=== PATIENT | female | born 1955 ===

== ENCOUNTER 2018-05-06 23:26 | Observation (INO) | payer MEDICAID, OTHER ==
[2018-05-06 23:50] VITALS: BMI 27.8
--- NOTE | 2018-05-07 00:14 | ED PDOC ---
Arrival/HPI - General Time Seen by Provider: 05/07/18 00:03 Historian: Patient, Family - History of Present Illness Narrative History of Present Illness (Text): 05/07/18 00:15 Becka Keith is a 63 year old female, whose past medical history includes diabet es, hypertension, kidney failure currently on transplant list, and appendectomy, presents to the Emergency department accompanied by daughter complaining of left sided abdominal pain for the past 3 weeks. Patient reports left-sided abdominal pain radiates to the left flank and has been gradually worsening. Patient reports no improvement after taking Percocet and Oxycontin. Patient notes she has been urinating frequently and experiencing nausea, vomiting, diarrhea, and cold sweats since yesterday. Patient denies headache, dizziness, chest pain, shortness of breath, dyspnea on exertion, cough, neck pain, or any other complaints. PMD: Dr. Somers Avionics System Engineer: Dr. Steven Marie Time/Duration: > week Symptom Course: Unchanged Quality: Aching Activities at Onset: Light Context: Home Past Medical History - Provider Review Nursing Documentation Reviewed: Yes - Infectious Disease Hx of Infectious Diseases: None - Cardiac Hx Pacemaker: No - Neurological Hx Paralysis: No - Endocrine/Metabolic Hx Diabetes Mellitus Type 2: Yes - Hematological/Oncological Hx Blood Transfusions: No Hx Blood Transfusion Reaction: No - Musculoskeletal/Rheumatological Hx Musculoskeletal Disorders: Yes - Psychiatric Hx Emotional Abuse: No Hx Physical Abuse: No Hx Substance Use: No - Surgical History Hx Appendectomy: Yes - Anesthesia Hx Anesthesia Reactions: No Hx Malignant Hyperthermia: No - Suicidal Assessment Feels Threatened In Home Enviroment: No Family/Social History - Physician Review Nursing Documentation Reviewed: Yes Family/Social History: Unknown Family HX Smoking Status: Former Smoker Hx Alcohol Use: No Hx Substance Use: No Hx Substance Use Treatment: No Allergies/Home Meds Allergies/Adverse Reactions: Allergies latex Allergy (Intermediate, Verified 05/06/18 23:50) HIVES aspirin Adverse Reaction (Intermediate, Verified 05/06/18 23:50) ACID REFLUX/STOMACH PAIN Home Medications: Home Meds Medication Instructions Recorded Confirmed Insulin Glargine,Hum.rec.anlog 10 unit SC HS 01/12/12 05/07/18 [Lantus] Insulin Human NPH/Reg [HumuLIN 8 units SC ACBD 06/29/12 10/23/18 70/30 (NPH/Reg)] Oxycodone HCl [Oxycontin] 10 mg PO BID 05/24/16 05/07/18 oxyCODONE/Acetaminophen [Percocet 1 tab PO QID PRN 07/14/16 05/07/18 5/325 mg Tab] Acetaminophen/Butalbital/Caf 1 tab PO Q6H PRN 05/06/18 05/06/18 [Fioricet] Biotin 1,000 mcg PO DAILY 05/06/18 05/07/18 Bisoprolol Fumarate 10 mg PO BID 05/06/18 05/06/18 Cyclobenzaprine [Flexeril] 10 mg PO DAILY 05/06/18 05/07/18 Docusate [Colace] 100 mg PO DAILY 05/06/18 05/06/18 Ergocalciferol (Vitamin D2) 1 tab PO MON 05/06/18 05/06/18 [Vitamin D2] Furosemide [Lasix] 20 mg PO DAILY 05/06/18 05/06/18 Lamotrigine [Lamictal] 150 mg PO DAILY 05/06/18 05/06/18 Omeprazole Magnesium [Prilosec Otc] 40 mg PO DAILY 05/06/18 05/07/18 SITagliptin [Januvia] 100 mg PO DAILY 05/06/18 05/06/18 Sodium Bicarbonate Tab 650 mg PO DAILY 05/06/18 05/07/18 Topiramate [Topamax] 50 mg PO DAILY 05/06/18 05/06/18 hydrALAZINE [Apresoline] 25 mg PO TID 05/06/18 05/07/18 hydrALAZINE [Apresoline] 50 mg PO TID 05/06/18 05/06/18 Atorvastatin [Lipitor] 20 mg PO DAILY 05/07/18 05/07/18 Ferrous Sulfate [Feosol] 325 mg PO DAILY 05/07/18 05/07/18 Lisinopril [Zestril] 40 mg PO DAILY 05/07/18 05/07/18 Losartan [Cozaar] 100 mg PO DAILY 05/07/18 05/07/18 Ranitidine HCl [Acid [employer]] 150 mg PO DAILY 05/07/18 05/07/18 Spironolactone [Aldactone] 25 mg PO DAILY 05/07/18 05/07/18 Review of Systems - Physician Review All systems were reviewed & negative as marked: Yes - Review of Systems Constitutional: absent: Fevers Respiratory: absent: SOB, Cough Cardiovascular: absent: Chest Pain Gastrointestinal: Abdominal Pain, Diarrhea, Nausea, Vomiting Genitourinary Female: Frequency Neurological: absent: Headache, Dizziness Physical Exam Vital Signs Reviewed: Yes Vital Signs Temp Pulse Resp BP Pulse Ox 05/07/18 00:09 98.7 F 70 16 187/89 H 100 Temperature: Afebrile Blood Pressure: Hypertensive Pulse: Regular Respiratory Rate: Normal Appearance: Positive for: Well-Appearing, Non-Toxic, Comfortable Pain Distress: None Mental Status: Positive for: Alert and Oriented X 3 - Systems Exam Head: Present: Atraumatic, Normocephalic Pupils: Present: PERRL Extroacular Muscles: Present: EOMI Conjunctiva: Present: Normal Mouth: Present: Moist Mucous Membranes Neck: Present: Normal Range of Motion Respiratory/Chest: Present: Clear to Auscultation, Good Air Exchange. No: Respiratory Distress, Accessory Muscle Use Cardiovascular: Present: Regular Rate and Rhythm, Normal S1, S2. No: Murmurs Abdomen: Present: Tenderness (left mid/upper). No: Distention, Peritoneal Signs Back: Present: Normal Inspection Upper Extremity: Present: Normal Inspection. No: Cyanosis, Edema Lower Extremity: Present: Normal Inspection. No: Edema Neurological: Present: GCS=15, CN II-XII Intact, Speech Normal Skin: Present: Warm, Dry, Normal Color. No: Rashes Psychiatric: Present: Alert, Oriented x 3, Normal Insight, Normal Concentration Medical Decision Making ED Course and Treatment: 05/07/18 00:15 Impression: 63 year old female who present to the Emergency department with complaints of left sided flank pain. Plan: -- CT of Abdomen -- EKG -- Labs -- UA -- Reassess and disposition Prior Visits: Notes and results from previous visits were reviewed. Progress Notes: Reviewed EKG, NSR at 79 bpm. Normal axis. Normal intervals. No acute ST/T wave changes. 05/07/18 03:32 CT of Abdomen and Pelvis reviewed, shows: CT SCAN OF THE ABDOMEN AND PELVIS WITHOUT ORAL OR IV CONTRAST. CLINICAL INDICATION: Left flank pain. TECHNIQUE: Axial and reformatted sagittal and coronal images of the abdomen pelvis obtained without IV contrast administration. COMPARISON: None. FINDINGS: The visualized lung bases are unremarkable. Normal unenhanced liver. Normal gallbladder and extrahepatic biliary system. Normal unenhanced spleen. Normal pancreas. Normal bilateral adrenal glands. Normal size of the right kidney. There is no right renal mass. There are no right renal calculi. There is no right hydronephrosis. Normal visualized right ureter. Normal size of the left kidney. There is no left renal mass. There are no left renal calculi. There is no left hydronephrosis. Normal visualized left ureter. Fluid-filled visualized stomach. Normal small intestine. Uncomplicated diverticulosis with moderate amount of fecal residue in the colon. The appendix is visualized and appears normal. There is no demonstrated peritoneal fluid. Normal abdominal aorta. Normal inferior vena cava. Normal retroperitoneum. Normal urinary bladder. There is no pelvic mass lesion or lymphadenopathy. There is no pelvic fluid. Surgical changes of anterior abdominal wall. Left hip arthroplasty with metallic prosthesis in good position. Moderate diffuse spondylosis. IMPRESSION: Gastroparesis. Constipation. No nephrolithiasis or hydronephrosis. Electronically signed on May 07, 2018 3:29:25 AM EDT by: Hiren Mayorga M.D., Certified by ABR, MSK, Neuroradiology 05/07/18 03:57 Case discussed with medical officer psychiatry ironworker apprentice, who is aware and agrees with plan. 05/07/18 04:[address] Boyer, who is aware and agrees with plan. Accepts pt in to hospitalist service. [facility] will go to [facility] observation for intractable abdominal pain. - Lab Interpretations I have reviewed the lab results: Yes - RAD Interpretation Family And Consumer Education Teacher: ED Physician, Radiologist - EKG Interpretation Interpreted by ED Physician: Yes Type: 12 lead EKG - PA / FURNACE RELINER / Resident Statement MD/DO has reviewed & agrees with the documentation as recorded. - Scribe Statement The provider has reviewed the documentation as recorded by the [employer]el[employer] Arce training with Kelly Mares Provider Scribe Attestation: All medical record entries made by the Scribe were at my direction and personally dictated by me. I have reviewed the chart and agree that the record accurately reflects my personal performance of the history, physical exam, medical decision making, and the department course for this patient. I have also personally directed, reviewed, and agree with the discharge instructions and disposition. Disposition/Present on Arrival - Present on Arrival Any Indicators Present on Arrival: No History of DVT/PE: No History of Uncontrolled Diabetes: Yes Urinary Catheter: No History of Decub. Ulcer: No History Surgical Site Infection Following: None - Disposition Have Diagnosis and Disposition been Completed?: Yes Diagnosis: Intractable abdominal pain Disposition: HOSPITALIZED Disposition Time: 03:52 Patient Plan: Observation Patient Problems: Current Active Problems Problem Status Onset Intractable abdominal pain Acute Condition: STABLE Referrals: Jose Juan Coles MD [Primary Care Provider] - Follow up with primary
[2018-05-07 01:42] LABS: CALCIUM 9.1 mg/dL (8.4-10.5)
[2018-05-07 01:43] LABS: ALB/GLOB RATIO 0.9 (1.1-1.8); ALBUMIN 3.7 g/dL (3.0-4.8)
[2018-05-07 01:49] LABS: URINE BILIRUBIN NEGATIVE (NEGATIVE); URINE BLOOD TRACE-INTACT (NEGATIVE); URINE GLUCOSE (UA) 500 mg/dL (NEGATIVE); URINE LEUKOCYTE ESTERASE NEGATIVE Leu/uL (NEGATIVE); URINE PROTEIN >=300 mg/dL (<30 mg/dL); URINE UROBILINOGEN 0.2 E.U./dL (<1 E.U./dL)
[2018-05-07 01:50] LABS: HEMOGLOBIN 9.7 g/dL (12.0-16.0); MEAN CELL VOLUME 89.3 fl (80.0-105.0); MEAN CORPUSCULAR HEMOGLOBIN 29.8 pg (25.0-35.0); MEAN CORPUSCULAR HGB CONC 33.3 g/dl (31.0-37.0); MEAN PLATELET VOLUME 10.4 fl (7.0-11.0); RBC 3.26 10^6/uL (3.5-6.1); RED CELL DISTRIBUTION WIDTH 13.6 % (11.5-14.5); WHITE BLOOD COUNT 8.9 10^3/ul (4.5-11.0)
[2018-05-07 01:53] LABS: URINE APPEARANCE CLEAR (CLEAR); URINE COLOR YELLOW (YELLOW)
[2018-05-07 02:01] LABS: URINE BACTERIA TRACE (NEG); URINE RBC 0 - 2 /hpf (0-2); URINE WBC 0 - 2 /hpf (0-6)
[2018-05-07] MEDS ORDERED: Sodium Chloride 0.9% 1,000 ML IV STA (02:54)
[2018-05-07] MEDS ORDERED: Morphine 2 mg/ml ISec IVP STA (02:54)
[2018-05-07] MEDS ORDERED: POLYETHYLENE GLYCOL 3350 17 GM/Dose PACKET PO STA (04:45)
--- NOTE | 2018-05-07 06:02 | CP.PCM.HP ---
<Robert Lake - Last Filed: 05/07/18 07:34> History of Present Illness - History of Present Illness History of Present Illness: Robert Lake PGY1 Internal Medicine Vertical Contour Band Saw Operator Medicine H&P CC: LUQ Pain + L Flank Pain 63F w/ a PMH of CKD pending transplant, HTN, DM, GERD, Chronic Back pain, HLD, Constipation, Mirgraines; presented to [facility] on 05/07 w/ a CC of LUQ pain which radiates into the L flank. Patient reports this pain has been ongoing for 3 weeks worsening in the time. She describes pain as a dull pain which is under her L rib and radiates in her L flank. Patient reports pain is constant does not change quality or presentation with food, bowel movements, or movement. She reports her last BM was on sunday normal color consistency assoc w/ cold sweats + bilious NV (multiple episodes of vomitus). She denies any worsening of the n/v since then. She reports she came in today because last night she had a "bad night" and she took her last percocet this AM. Denies any hemochezia, melena, hematuria. She denies any change in presentation w/ urination. Remainder of 12 system ROS is negative at this time. PMD: Kimi; Painmgmt: Reginald/ Mateo GI: Marisol Nephro: Hadad PMH: as above PSH: Hystercotmy + Oophrectomy age 34; Back Sx/ Fusions multiple - age [age]; Hip replacement 2012; Knee replacement 1998 Home Rx: Verified in SEP w/ physical Rx patient brought in; note there are multiple formulations/dosages of medications; patient reports taking both of them. Allergies: Latex ASA Present on Admission - Present on Admission Any Indicators Present on Admission: No Review of Systems - Review of Systems All systems: reviewed and no additional remarkable complaints except Review of Systems: As per HPI Past Patient History - Infectious Disease Hx of Infectious Diseases: None - Past Social History Smoking Status: Former Smoker - CARDIAC Hx Pacemaker: No - NEUROLOGICAL Hx Paralysis: No - ENDOCRINE/METABOLIC Hx Diabetes Mellitus Type 2: Yes - HEMATOLOGICAL/ONCOLOGICAL Hx Blood Transfusions: No Hx Blood Transfusion Reaction: No - MUSCULOSKELETAL/RHEUMATOLOGICAL Hx Musculoskeletal Disorders: Yes - PSYCHIATRIC Hx Emotional Abuse: No Hx Physical Abuse: No Hx Substance Use: No - SURGICAL HISTORY Hx Appendectomy: Yes - ANESTHESIA Hx Anesthesia Reactions: No Hx Malignant Hyperthermia: No Meds Allergies/Adverse Reactions: Allergies Allergy/AdvReac Type Severity Reaction Status Date / Time latex Allergy Intermediate HIVES Verified 05/06/18 23:50 aspirin AdvReac Intermediate ACID Verified 05/06/18 23:50 REFLUX/STOMACH PAIN Physical Exam - Constitutional Appears: Well, Non-toxic, No Acute Distress - Head Exam Head Exam: ATRAUMATIC, NORMAL INSPECTION, NORMOCEPHALIC - Eye Exam Eye Exam: EOMI, Normal appearance, PERRL Pupil Exam: PERRL - ENT Exam ENT Exam: Mucous Membranes Moist, Normal Exam - Neck Exam Neck exam: Positive for: Normal Inspection - Respiratory Exam Respiratory Exam: Clear to Auscultation Bilateral, NORMAL BREATHING PATTERN. absent: Rales, Rhonchi, Wheezes, Respiratory Distress - Cardiovascular Exam Cardiovascular Exam: RRR, +S1, +S2. absent: Systolic Murmur - GI/Abdominal Exam GI & Abdominal Exam: Normal Bowel Sounds, Soft. absent: Tenderness - Extremities Exam Extremities exam: Positive for: normal inspection, pedal pulses present. Negative for: tenderness - Back Exam Back exam: absent: CVA tenderness (L), CVA tenderness (R), vertebral tenderness - Neurological Exam Neurological exam: Alert, CN II-XII Intact, Oriented x3 - Psychiatric Exam Psychiatric exam: Normal Affect, Normal Mood - Skin Skin Exam: Dry, Mottled, Warm Results - Vital Signs Recent Vital Signs: Last Vital Signs Temp 98.7 F 05/07/18 00:09 Pulse 70 05/07/18 00:09 Resp 16 05/07/18 00:09 BP 187/89 H 05/07/18 00:09 Pulse Ox 100 05/07/18 00:09 - Labs Result Diagrams: 05/07/18 01:10 05/07/18 01:10 Labs: Laboratory Results - last 24 hr 05/07/18 05/07/18 05/07/18 01:10 01:10 01:20 WBC 8.9 RBC 3.26 L Hgb 9.7 L Hct 29.1 L MCV 89.3 MCH 29.8 MCHC 33.3 RDW 13.6 Plt Count 241 MPV 10.4 Sodium 136 Potassium 4.9 Chloride 107 Carbon Dioxide 18 L Anion Gap 16 BUN 54 H Creatinine 3.5 H Est GFR ( Amer) 16 Est GFR (Non-Af Amer) 13 Random Glucose 231 H Calcium 9.1 Total Bilirubin 0.5 AST 21 ALT 15 Alkaline Phosphatase 141 H Total Protein 7.7 Albumin 3.7 Globulin 4.0 Albumin/Globulin Ratio 0.9 L Lipase 63 Urine Color Yellow Urine Appearance Clear Urine pH 7.0 Ur Specific [place] 1.020 Urine Protein >=300 H Urine Glucose (UA) 500 H Urine Ketones Negative Urine Blood Trace-intact H Urine Nitrate Negative Urine Bilirubin Negative Urine Urobilinogen 0.2 Ur Leukocyte Esterase Negative Urine RBC 0 - 2 Urine WBC 0 - 2 Ur Epithelial Cells 3 - 4 Urine Bacteria Trace Assessment & Plan - Assessment and Plan (Free Text) Assessment: 63F w/ a PMH of CKD pending transplant, HTN, DM, GERD, Chronic Back pain, HLD, Constipation, Mirgraines; presented to [facility] ED on 05/07 w/ a CC of LUQ pain which radiates into the L flank. Patient is admitted for management and work up of intractable LUQ/L Flank Pain. PLAN: Intractable LUQ/L Flank Pain: Pain is most likely 2/2 to chronic constipation in the setting of opiate use vs Irregular presentation of lumbar pain 2/2 disc protrusion. Benign abdominal exam C/w Home Flexeril 10 QD Start Percocet 5/325 Q4H PRN CTAP shows gastroparesis; Start bowel regimen as below Constipation: - Gastroparesis 2/2 Chronic Opiate use Colace 100 BID Miralax 17gm QD HTN: C/w Home Hydralazine 50 TID C/w Home Bisoprolol 10 BID DM: C/w Home Lantus 10 HS ISS High Fingerstick ACHS Follow up A1C level Migraine Headache: C/w Home Topamax CATRINA C/w Home Firocet PRN Hold home Lamictal - Pt reports she does not take CKD: Nephrology consulted, Dr. Miranda Renal Diet Hold Nephrotoxic agents Holding James/ARB + Diuretics Diet: Renal PPX: DVT Heparin 5000 Q8 GI: Pepcid - Date & Time Date: 05/07/18 Time: 07:38 <Sherwin Boyer - Last Filed: 05/09/18 22:44> Results - Vital Signs Recent Vital Signs: Last Vital Signs Temp 98.3 F 05/09/18 17:36 Pulse 77 05/09/18 17:36 Resp 20 05/09/18 17:36 BP 165/89 H 05/09/18 17:36 Pulse Ox 97 05/09/18 17:36 - Labs Result Diagrams: 05/07/18 01:10 05/07/18 01:10 Labs: Laboratory Results - last 24 hr 05/09/18 05/09/18 05/09/18 07:16 11:12 16:15 POC Glucose (mg/dL) 113 H 214 H 167 H 05/09/18 20:53 POC Glucose (mg/dL) 158 H
[2018-05-07] MEDS: Oxycodone/Acetaminophen 5/325 mg Tab PO PRN ×3 (06:14→21:15)
[2018-05-07 07:24] LABS: IRON 84 ug/dL (45-180)
[2018-05-07 07:34] LABS: TOTAL IRON BINDING CAPACITY 193 ug/dL (265-497)
[2018-05-07 07:35] LABS: % IRON SATURATION 44 % (20-55)
[2018-05-07] MEDS ORDERED: Insulin Regular 1 UNITS/0.01 ML ML ONE (09:13)
[2018-05-07 09:16] LABS: INR 0.93; PARTIAL THROMBOPLASTIN TIME 27.6 Seconds (25.1-36.5); PROTHROMBIN TIME 10.7 SECONDS (9.4-12.5)
[2018-05-07] MEDS: Insulin Reg-HIGH-Coverage SC SCH ×4 (09:19→21:16)
[2018-05-07] MEDS ORDERED: BISOPROLOL FUMARATE PO SCH (10:00)
[2018-05-07] MEDS ORDERED: POLYETHYLENE GLYCOL 3350 17 GM/Dose PACKET PO SCH (10:00)
--- NOTE | 2018-05-07 10:22 | CARD ---
APPROVED REPORT Date of service: 05/06/2018 EKG Measurement Heart [id number] <Conclusion> Normal sinus rhythm Moderate voltage criteria for LVH NSSTW changes Possible IMI, age unknown
--- NOTE | 2018-05-07 12:04 | CT ---
Date of service: 05/07/2018 PROCEDURE: CT Abdomen and Pelvis without intravenous contrast HISTORY: left flank pain COMPARISON: None. TECHNIQUE: Technique. Contrast dose: Radiation dose: Total exam DLP = 423.22 mGy-cm. This CT exam was performed using one or more of the following dose reduction techniques: Automated exposure control, adjustment of the mA and/or kV according to patient size, and/or use of iterative reconstruction technique. FINDINGS: LOWER THORAX: Unremarkable. LIVER: Unremarkable. No gross lesion or ductal dilatation. GALLBLADDER AND BILE DUCTS: Unremarkable. PANCREAS: Unremarkable. No gross lesion or ductal dilatation. SPLEEN: Unremarkable. ADRENALS: Unremarkable. No mass. KIDNEYS AND URETERS: Unremarkable. No hydronephrosis. No solid mass. VASCULATURE: Unremarkable. No aortic aneurysm. No aortic atherosclerotic calcification or mural plaque present. BOWEL: Unremarkable. No obstruction. No gross mural thickening. APPENDIX: Unremarkable. Normal appendix. PERITONEUM: Unremarkable. No free fluid. No free air. LYMPH NODES: Unremarkable. No enlarged lymph nodes. BLADDER: Unremarkable. REPRODUCTIVE: Unremarkable. BONES: No acute fracture. OTHER FINDINGS: Status post anterior abdominal wall surgery. IMPRESSION: Status post anterior abdominal wall surgery.
[2018-05-07] MEDS: Insulin Detemir 100 units/ml Vial (Levemir) SC SCH ×2 (12:06→21:16)
[2018-05-07 12:48] LABS: FERRITIN 53.2 ng/mL
[2018-05-07] MEDS: NIFEdipine 60 mg ER Tab PO SCH (14:45)
[2018-05-07] MEDS: Sodium Chloride 0.9% 1,000 ML IV SCH (14:46)
--- NOTE | 2018-05-07 15:54 | CP.PCM.CON ---
History of Present Illness - History of Present Illness History of Present Illness: Nephrology Consultation Note: Assessment: Stable Acute Kidney Injury (N17.9) likely due to pre-renal state HTN urgency pain abdomen Diabetic chronic Kidney Disease (E11.22) Hypertensive Chronic Kidney Disease (I12.9) Chronic Kidney Disease (N18.4) Stage 4 with ? mg proteinuria (R80.9) due to diabetic nephropathy Anemia (D64.9), Hyperphosphatemia (E83.39), Secondary Hyperparathyroidism (E21.1), HTN (I12.9). migraine Hypertriglyceridemia, metabolic acidosis Plan No acute need for renal replacement therapy at this time. Hypertension control with meds as ordered. Maintain hemodynamics stable. Avoid hypotension. resume losartan. avoid dual RAAS blockade, hence no ACEI. continue with hydralazine. pt had been intolerant of norvasc in past. will try procardia XL 60 mg/day. Monitor Input/Output, daily weights and renal function with basic metabolic panel will give IVF as NS continue with statins, iron and MVI sodium bicarb as 1300 mg bid avoid phlebotomy, IV line in non dominant arm Dose meds/antibiotics for reduced GFR. Avoid fleets enema/magnesium based laxatives. Avoid nephrotoxins/NSAIDs/ iodinated contrast (unless needed e mergently) Glycemic control Further work up/management as per primary team Thanks for allowing me to participate in care of your patient. Will follow patient with you. 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 she still c/o pain abdomen Denies OTC/herbal meds or NSAIDs No recent iodinated contrast exposure. No obvious episodes of low BP. very upset about her kidney disease diagnosis ROS: Cardiovascular: No chest pain. Pulmonary: No shortness of breath Gastrointestinal: c/o abdominal pain c/o nausea. No vomiting now. Genitourinary: No pain while urinating. Denies blood in urine. All other negative except as mentioned in HPI Physical Examination: General Appearance: uncomfortable, in no acute respiratory distress, co- operative . Vitals reviewed and noted as below Head; Atraumatic, normocephalic ENT: no ulcers no thrush. Tongue is midline. Oropharynx: no rash or ulcers. EYES: Pupils are equal, round and reactive to light accommodation. Eye muscles and extraocular movement intact. Sclera is anicteric. Neck; supple no lymphadenopathy, no thyromegaly or bruit Lungs: Normal respiratory rate/effort. Breath sounds bilateral equal and clear Heart: Normal rate. s1s2 normal. No rub or gallop. Extremities: no edema. No varicose veins Neurological: Patient is alert, awake and oriented to person, place and time. No focal deficit. Strength bilateral appropriate and equal Skin: Warm and dry. Normal turgor. No rash. Palpitation: Normal elasticity for age Abdomen: Abdomen is soft. Bowel sounds +. There is mild epigastic abdominal tend erness, no guarding/rigidity no organomegaly Psych: normal insight and upset MSK: no joint tenderness or swelling. Digits and nails normal, no deformity : kidney or bladder not palpable Labs/imaging reviewed. Past medical history, past surgical history, family history, social history, allergy reviewed and noted as below Family hx: no hx of CKD. Rest non-contributory Past Patient History - Infectious Disease Hx of Infectious Diseases: None - Past Social History Smoking Status: Former Smoker - CARDIAC Hx Cardiac Disorders: Yes Hx Hypertension: Yes - PULMONARY Hx Respiratory Disorders: No - NEUROLOGICAL Hx Neurological Disorder: No - HEENT Hx HEENT Problems: No - RENAL Hx Chronic Kidney Disease: Yes - ENDOCRINE/METABOLIC Hx Diabetes Mellitus Type 2: Yes - HEMATOLOGICAL/ONCOLOGICAL Hx Blood Disorders: No - INTEGUMENTARY Hx Dermatological Problems: No - MUSCULOSKELETAL/RHEUMATOLOGICAL Hx Back Pain: Yes Hx Degenerative Joint Disease: Yes Hx Falls: Yes - GASTROINTESTINAL Hx Gastrointestinal Disorders: Yes Other/Comment: Chronic constipation - GENITOURINARY/GYNECOLOGICAL Hx Urinary Tract Infection: Yes - PSYCHIATRIC Hx Emotional Abuse: No Hx Physical Abuse: No Hx Substance Use: No - SURGICAL HISTORY Hx Surgeries: Yes Hx Appendectomy: Yes Hx Hysterectomy: Yes Hx Joint Replacement: Yes Hx Musculoskeletal Surgery: Yes Other/Comment: Bilateral knee replacement, left hip replacement, multiple back surgeries - ANESTHESIA Hx Anesthesia Reactions: No Hx Malignant Hyperthermia: No Meds Allergies/Adverse Reactions: Allergies Allergy/AdvReac Type Severity Reaction Status Date / Time latex Allergy Intermediate HIVES Verified 05/06/18 23:50 aspirin AdvReac Intermediate ACID Verified 05/06/18 23:50 REFLUX/STOMACH PAIN - Medications Medications: Current Medications Acetaminophen/Butalbital/Caffeine (Fioricet) 1 tab PO Q6H PRN PRN Reason: Headache Atorvastatin Calcium (Lipitor) 20 mg PO DAILY [facility] Last Admin: 05/07/18 12:07 Dose: 20 mg Cyclobenzaprine HCl (Flexeril) 10 mg PO DAILY [facility] Last Admin: 05/07/18 12:05 Dose: 10 mg Docusate Sodium (Colace) 100 mg PO BID [facility] Last Admin: 05/07/18 12:05 Dose: 100 mg Famotidine (Pepcid) 40 mg PO HS [facility] Ferrous Sulfate (Feosol) 324 mg PO DAILY [facility] Heparin Sodium (Porcine) (Heparin) 5,000 units SC Q8 [facility]; Protocol Hydralazine HCl (Apresoline) 50 mg PO TID [facility] Last Admin: 05/07/18 09:03 Dose: 50 mg Hydralazine HCl (Apresoline) 25 mg PO Q4 PRN PRN Reason: Other Insulin Detemir (Levemir) 5 unit SC Q12 [facility] Last Admin: 05/07/18 12:06 Dose: 5 units Insulin Human Regular (Humulin R High) 0 units SC ACHS [facility]; Protocol Last Admin: 05/07/18 12:06 Dose: 4 units Losartan Potassium (Cozaar) 100 mg PO DAILY [facility] Last Admin: 05/07/18 12:05 Dose: 100 mg Bisoprolol Fumarate [Bisoprolol Fumarate ] (Home Med) 10 mg PO BID [facility] Ondansetron HCl (Zofran Inj) 4 mg IVP Q4H PRN PRN Reason: Nausea/Vomiting Oxycodone/Acetaminophen (Percocet 5/325 Mg Tab) 1 tab PO Q4H PRN PRN Reason: Pain, severe (8-10) Stop: 05/10/18 05:51 Last Admin: 05/07/18 06:14 Dose: 1 tab Polyethylene Glycol (Miralax) 17 gm PO BID [facility] Sodium Bicarbonate (Sodium Bicarbonate Tab) 1,300 mg PO BID [facility] Topiramate (Topamax) 50 mg PO DAILY [facility]; Protocol Last Admin: 05/07/18 12:07 Dose: 50 mg Results - Vital Signs Recent Vital Signs: Last Vital Signs Temp 97.9 F 05/07/18 08:00 Pulse 106 H 05/07/18 09:03 Resp 20 05/07/18 11:28 BP 204/88 H 05/07/18 09:03 Pulse Ox 98 05/07/18 08:00 - Labs Result Diagrams: 05/07/18 01:10 05/07/18 01:10 Labs: Laboratory Results - last 24 hr 05/06/18 05/07/18 05/07/18 23:58 01:10 01:10 WBC 8.9 RBC 3.26 L Hgb 9.7 L Hct 29.1 L MCV 89.3 MCH 29.8 MCHC 33.3 RDW 13.6 Plt Count 241 MPV 10.4 PT INR APTT Sodium 136 Potassium 4.9 Chloride 107 Carbon Dioxide 18 L Anion Gap 16 BUN 54 H Creatinine 3.5 H Est GFR ( Amer) 16 Est GFR (Non-Af Amer) 13 POC Glucose (mg/dL) 312 H Random Glucose 231 H Calcium 9.1 Phosphorus Magnesium Iron TIBC % Saturation Transferrin Total Bilirubin 0.5 AST 21 ALT 15 Alkaline Phosphatase 141 H Total Protein 7.7 Albumin 3.7 Globulin 4.0 Albumin/Globulin Ratio 0.9 L Triglycerides Cholesterol LDL Cholesterol Direct HDL Cholesterol Amylase Lipase 63 Urine Color Urine Appearance Urine pH Ur Specific [place] Urine Protein Urine Glucose (UA) Urine Ketones Urine Blood Urine Nitrate Urine Bilirubin Urine Urobilinogen Ur Leukocyte Esterase Urine RBC Urine WBC Ur Epithelial Cells Urine Bacteria 05/07/18 05/07/18 05/07/18 01:15 01:15 01:15 WBC RBC Hgb Hct MCV MCH MCHC RDW Plt Count MPV PT INR APTT Sodium Potassium Chloride Carbon Dioxide Anion Gap BUN Creatinine Est GFR ( Amer) Est GFR (Non-Af Amer) POC Glucose (mg/dL) Random Glucose Calcium Phosphorus 4.7 H Magnesium 1.9 Iron 84 TIBC 193 L % Saturation 44 Transferrin 174.62 L Total Bilirubin AST ALT Alkaline Phosphatase Total Protein Albumin Globulin Albumin/Globulin Ratio Triglycerides Cholesterol LDL Cholesterol Direct HDL Cholesterol Amylase 78 Lipase Urine Color Urine Appearance Urine pH Ur Specific [place] Urine Protein Urine Glucose (UA) Urine Ketones Urine Blood Urine Nitrate Urine Bilirubin Urine Urobilinogen Ur Leukocyte Esterase Urine RBC Urine WBC Ur Epithelial Cells Urine Bacteria 05/07/18 05/07/18 05/07/18 01:20 07:16 08:50 WBC RBC Hgb Hct MCV MCH MCHC RDW Plt Count MPV PT INR APTT Sodium Potassium Chloride Carbon Dioxide Anion Gap BUN Creatinine Est GFR ( Amer) Est GFR (Non-Af Amer) POC Glucose (mg/dL) 219 H Random Glucose Calcium Phosphorus Magnesium Iron TIBC % Saturation Transferrin Total Bilirubin AST ALT Alkaline Phosphatase Total Protein Albumin Globulin Albumin/Globulin Ratio Triglycerides 910 H Cholesterol 499 H LDL Cholesterol Direct 129 HDL Cholesterol 48 Amylase Lipase Urine Color Yellow Urine Appearance Clear Urine pH 7.0 Ur Specific [place] 1.020 Urine Protein >=300 H Urine Glucose (UA) 500 H Urine Ketones Negative Urine Blood Trace-intact H Urine Nitrate Negative Urine Bilirubin Negative Urine Urobilinogen 0.2 Ur Leukocyte Esterase Negative Urine RBC 0 - 2 Urine WBC 0 - 2 Ur Epithelial Cells 3 - 4 Urine Bacteria Trace 05/07/18 08:50 WBC RBC Hgb Hct MCV MCH MCHC RDW Plt Count MPV PT 10.7 INR 0.93 APTT 27.6 Sodium Potassium Chloride Carbon Dioxide Anion Gap BUN Creatinine Est GFR ( Amer) Est GFR (Non-Af Amer) POC Glucose (mg/dL) Random Glucose Calcium Phosphorus Magnesium Iron TIBC % Saturation Transferrin Total Bilirubin AST ALT Alkaline Phosphatase Total Protein Albumin Globulin Albumin/Globulin Ratio Triglycerides Cholesterol LDL Cholesterol Direct HDL Cholesterol Amylase Lipase Urine Color Urine Appearance Urine pH Ur Specific [place] Urine Protein Urine Glucose (UA) Urine Ketones Urine Blood Urine Nitrate Urine Bilirubin Urine Urobilinogen Ur Leukocyte Esterase Urine RBC Urine WBC Ur Epithelial Cells Urine Bacteria
[2018-05-07] MEDS: POLYETHYLENE GLYCOL 3350 17 GM/Dose PACKET PO SCH (17:41)
[2018-05-08] MEDS: Apap-Butalbital-Caffeine 325-50-40mg Tab PO PRN ×2 (02:26→09:18)
[2018-05-08] MEDS: Oxycodone/Acetaminophen 5/325 mg Tab PO PRN ×2 (02:29→09:04)
[2018-05-08] MEDS: Insulin Reg-HIGH-Coverage SC SCH ×3 (08:41→22:21)
[2018-05-08] MEDS: BISOPROLOL FUMARATE 10 MG PO SCH ×2 (09:17→17:45)
[2018-05-08] MEDS: NIFEdipine 60 mg ER Tab PO SCH (09:19)
[2018-05-08] MEDS: Multivitamin Vitamin B Complex (Nephro-Vite) Tab PO SCH (09:19)
[2018-05-08] MEDS: Insulin Detemir 100 units/ml Vial (Levemir) SC SCH ×2 (09:19→22:24)
[2018-05-08] MEDS: POLYETHYLENE GLYCOL 3350 17 GM/Dose PACKET PO SCH ×2 (09:19→17:46)
--- NOTE | 2018-05-08 10:26 | CP.PCM.CON ---
<Aaron Perez - Last Filed: 05/08/18 17:25> History of Present Illness - History of Present Illness History of Present Illness: PGY-2 GI consult note for Dr Damon Mrs Keith is a 63 year old female with a PMHx of CKD pending transplant, HTN, DM, GERD, Chronic Back pain, HLD, Constipation, Mirgraines who presented [place] [facility] [place] LUQ adbominal pain which radiates into the L flank that been worsening for the past 3 weeks. GI has been consulted for constipation. She reports her last BM was on sunday normal color consistency assoc w/ cold sweats + bilious NV (multiple episodes of vomitus). She denies any worsening of the n/v since then. Of note she had a colonoscopy with Dr Damon in 07/2016 which showed a 8mm polyp (removed - path showed tubular adenoma), internal hemorrhoids and red undent colon. Of note she had a EGD with Dr Damno in 05/2016 which showed gastritis (path was negative). PMD: Sanket; Painmgmt: Reginald/ Mateo GI: Marisol Nephro: Hadad PMHx: CKD pending transplant, HTN, DM, GERD, Chronic Back pain, HLD, Constipation, Mirgraines PSHx: Hystercotmy + Oophrectomy age 34; Back Sx/ Fusions multiple - age [age]; Hip replacement 2012; Knee replacement 1998 Home Rx: Verified in MAR w/ physical Rx patient brought in; note there are multiple formulations/dosages of medications; patient reports taking both of them. Allergies: Latex ASA FamHx: no hx of colon cancer or ckd Review of Systems - Constitutional Constitutional: absent: Chills, Fever - EENT Eyes: absent: Change in Vision - Cardiovascular Cardiovascular: absent: Chest Pain - Respiratory Respiratory: absent: Dyspnea - Gastrointestinal Gastrointestinal: Abdominal Pain, Bloating, Constipation, Nausea. absent: Loose Stools - Musculoskeletal Musculoskeletal: Back Pain Past Patient History - Infectious Disease Hx of Infectious Diseases: None - Past Social History Smoking Status: Former Smoker - CARDIAC Hx Cardiac Disorders: Yes Hx Hypertension: Yes - PULMONARY Hx Respiratory Disorders: No - NEUROLOGICAL Hx Neurological Disorder: No - HEENT Hx HEENT Problems: No - RENAL Hx Chronic Kidney Disease: Yes - ENDOCRINE/METABOLIC Hx Diabetes Mellitus Type 2: Yes - HEMATOLOGICAL/ONCOLOGICAL Hx Blood Disorders: No - INTEGUMENTARY Hx Dermatological Problems: No - MUSCULOSKELETAL/RHEUMATOLOGICAL Hx Back Pain: Yes Hx Degenerative Joint Disease: Yes Hx Falls: Yes - GASTROINTESTINAL Hx Gastrointestinal Disorders: Yes Other/Comment: Chronic constipation - GENITOURINARY/GYNECOLOGICAL Hx Urinary Tract Infection: Yes - PSYCHIATRIC Hx Emotional Abuse: No Hx Physical Abuse: No Hx Substance Use: No - SURGICAL HISTORY Hx Surgeries: Yes Hx Appendectomy: Yes Hx Hysterectomy: Yes Hx Joint Replacement: Yes Hx Musculoskeletal Surgery: Yes Other/Comment: Bilateral knee replacement, left hip replacement, multiple back surgeries - ANESTHESIA Hx Anesthesia Reactions: No Hx Malignant Hyperthermia: No Meds Home Medications: Home Medication List Medication Instructions Recorded Confirmed Type Atorvastatin [Lipitor] 40 mg PO DAILY #30 tab 05/08/18 Rx Cyclobenzaprine [Flexeril] 10 mg PO DAILY tab 05/08/18 Rx Docusate [Colace] 100 mg PO BID cap 05/08/18 Rx Losartan [Cozaar] 100 mg PO DAILY #0 tab 05/08/18 Rx NIFEdipine ER [Procardia XL] 60 mg PO DAILY #30 ter 05/08/18 Rx Polyethylene Glycol 3350 [Miralax] 17 gm PO BID #14 packet 05/08/18 Rx Sodium Bicarbonate Tab 1,300 mg PO BID #60 tab 05/08/18 Rx Topiramate [Topamax] 50 mg PO DAILY tab 05/08/18 Rx Vitamin B Complex/Vit C/Folic 1 tab PO 0800 tab 05/08/18 Rx [Nephro-Josias] hydrALAZINE [Apresoline] 50 mg PO TID #90 tab 05/08/18 Rx Allergies/Adverse Reactions: Allergies Allergy/AdvReac Type Severity Reaction Status Date / Time latex Allergy Intermediate HIVES Verified 05/06/18 23:50 aspirin AdvReac Intermediate ACID Verified 05/06/18 23:50 REFLUX/STOMACH PAIN - Medications Medications: Current Medications Acetaminophen/Butalbital/Caffeine (Fioricet) 1 tab PO Q6H PRN PRN Reason: Headache Last Admin: 05/08/18 09:18 Dose: 1 tab Atorvastatin Calcium (Lipitor) 80 mg PO DIN [facility] Clonidine HCl (Catapres) 0.1 mg PO BID PRN PRN Reason: Systolic Blood Pressure > 170 Cyclobenzaprine HCl (Flexeril) 10 mg PO DAILY [facility] Last Admin: 05/08/18 09:18 Dose: 10 mg Docusate Sodium (Colace) 100 mg PO BID [facility] Last Admin: 05/08/18 09:17 Dose: 100 mg Famotidine (Pepcid) 20 mg PO HS [facility] Last Admin: 05/07/18 21:15 Dose: 20 mg Ferrous Sulfate (Feosol) 324 mg PO DAILY [facility] Last Admin: 05/08/18 09:18 Dose: 324 mg Heparin Sodium (Porcine) (Heparin) 5,000 units SC Q8 [facility]; Protocol Last Admin: 05/08/18 07:01 Dose: 5,000 units Hydralazine HCl (Apresoline) 50 mg PO TID [facility] Last Admin: 05/08/18 09:16 Dose: 50 mg Hydralazine HCl (Apresoline) 25 mg PO Q4 PRN PRN Reason: Other Sodium Chloride (Sodium Chloride 0.9%) 1,000 mls @ 100 mls/hr IV .Q10H [facility] Last Admin: 05/07/18 14:46 Dose: 100 mls/hr Insulin Detemir (Levemir) 5 unit SC Q12 [facility] Last Admin: 05/08/18 09:19 Dose: 5 units Insulin Human Regular (Humulin R High) 0 units SC ACHS [facility]; Protocol Last Admin: 05/08/18 08:41 Dose: Not Given Losartan Potassium (Cozaar) 100 mg PO DAILY [facility] Last Admin: 05/08/18 09:17 Dose: 100 mg Nifedipine (Procardia Xl) 60 mg PO DAILY [facility] Last Admin: 05/08/18 09:19 Dose: 60 mg Home Med - Bisoprolol Fumarate 10mg 10 mg PO BID [facility] Last Admin: 05/08/18 09:17 Dose: 10 mg Ondansetron HCl (Zofran Inj) 4 mg IVP Q4H PRN PRN Reason: Nausea/Vomiting Oxycodone/Acetaminophen (Percocet 5/325 Mg Tab) 1 tab PO Q8H PRN PRN Reason: Pain, severe (8-10) Stop: 05/10/18 05:51 Polyethylene Glycol (Miralax) 17 gm PO BID [facility] Last Admin: 05/08/18 09:19 Dose: 17 gm Sodium Bicarbonate (Sodium Bicarbonate Tab) 1,300 mg PO BID [facility] Last Admin: 05/08/18 09:20 Dose: 1,300 mg Topiramate (Topamax) 50 mg PO DAILY [facility]; Protocol Last Admin: 05/08/18 09:20 Dose: 50 mg Vitamin B Complex/Vit C/Folic Acid (Nephro-Josias) 1 tab PO 0800 [facility] Last Admin: 05/08/18 09:19 Dose: 1 tab Physical Exam - Additional Findings Additional findings: - Constitutional Appears: Well, Non-toxic, No Acute Distress - Head Exam Head Exam: ATRAUMATIC, NORMAL INSPECTION, NORMOCEPHALIC - Eye Exam Eye Exam: EOMI, Normal appearance, PERRL Pupil Exam: PERRL - ENT Exam ENT Exam: Mucous Membranes Moist, Normal Exam - Neck Exam Neck exam: Positive for: Normal Inspection - Respiratory Exam Respiratory Exam: Clear to Auscultation Bilateral, NORMAL BREATHING PATTERN. absent: Rales, Rhonchi, Wheezes, Respiratory Distress - Cardiovascular Exam Cardiovascular Exam: RRR, +S1, +S2. absent: Systolic Murmur - GI/Abdominal Exam GI & Abdominal Exam: Normal Bowel Sounds, Soft. absent: Tenderness - Extremities Exam Extremities exam: Positive for: normal inspection, pedal pulses present. Negative for: tenderness - Back Exam Back exam: absent: CVA tenderness (L), CVA tenderness (R), vertebral tenderness - Neurological Exam Neurological exam: Alert, CN II-XII Intact, Oriented x3 - Psychiatric Exam Psychiatric exam: Normal Affect, Normal Mood - Skin Skin Exam: Dry, Mottled, Warm Results - Vital Signs Recent Vital Signs: Last Vital Signs Temp 98.9 F 05/08/18 06:00 Pulse 81 05/08/18 09:16 Resp 20 05/08/18 06:00 BP 145/79 05/08/18 09:19 Pulse Ox 97 05/08/18 06:00 - Labs Result Diagrams: 05/07/18 01:10 05/07/18 01:10 Labs: Laboratory Results - last 24 hr 05/07/18 05/07/18 05/07/18 01:15 01:15 08:50 POC Glucose (mg/dL) Hemoglobin A1c 8.3 H Transferrin 174.62 L Ferritin 53.2 05/07/18 05/07/18 05/07/18 11:35 16:03 19:23 POC Glucose (mg/dL) 249 H 161 H 173 H Hemoglobin A1c Transferrin Ferritin 05/07/18 21:04 POC Glucose (mg/dL) 169 H Hemoglobin A1c Transferrin Ferritin Assessment & Plan - Assessment and Plan (Free Text) Plan: Mrs Keith is a 63 year old female with a PMHx of CKD pending transplant, HTN, DM, GERD, Chronic Back pain, HLD, Constipation, Mirgraines who presented [place] [facility] [place] LUQ adbominal pain which radiates into the L flank that been worsening for the past 3 weeks. GI has been consulted for constipation: Constipation -last bowel movement 10 days ago which was soft -likely gastroparesis 2/2 chronic opioid use -has been receiving docusate 100mg po bid and miralax 17g po bid -patient was prescribed naloxegol 2 months ago (indicated for opioid-induced constipation) - she said this medication helps however she hasn't taken it in the past week (she said she only takes if 2 weeks go by without a bowel movement) - this medication is supposed to be taken once a day -started her on clear liquid diet 05/08 -administer 1/2 gallon of golytly 05/08 -change insulin coverage to low coverage and order for hypoglycemia protocol 1 -ct abd/pelvis w/o contrast showed stool throughout colon and rectum (as read by me - official read was unremarkable except previous anterior wall surgery) Previous Procedures: -she had a colonoscopy with Dr Damon in 07/2016 which showed a 8mm polyp (removed - path showed tubular adenoma), internal hemorrhoids and redundent colon. She also had an EGD with Dr Damon in 05/2016 which showed gastritis (path was negative). Case discussed with Dr Damon. <Abdirizak Damon V - Last Filed: 05/08/18 21:35> Meds - Medications Medications: Current Medications Acetaminophen/Butalbital/Caffeine (Fioricet) 1 tab PO Q6H PRN PRN Reason: Headache Last Admin: 05/08/18 09:18 Dose: 1 tab Atorvastatin Calcium (Lipitor) 80 mg PO DIN [facility] Last Admin: 05/08/18 17:46 Dose: 80 mg Clonidine HCl (Catapres) 0.1 mg PO BID PRN PRN Reason: Systolic Blood Pressure > 170 Cyclobenzaprine HCl (Flexeril) 10 mg PO DAILY [facility] Last Admin: 05/08/18 09:18 Dose: 10 mg Docusate Sodium (Colace) 100 mg PO BID [facility] Last Admin: 05/08/18 17:48 Dose: 100 mg Famotidine (Pepcid) 20 mg PO HS [facility] Last Admin: 05/07/18 21:15 Dose: 20 mg Heparin Sodium (Porcine) (Heparin) 5,000 units SC Q8 [facility]; Protocol Last Admin: 05/08/18 13:32 Dose: 5,000 units Hydralazine HCl (Apresoline) 50 mg PO TID [facility] Last Admin: 05/08/18 17:45 Dose: 50 mg Hydralazine HCl (Apresoline) 25 mg PO Q4 PRN PRN Reason: Other Sodium Chloride (Sodium Chloride 0.9%) 1,000 mls @ 100 mls/hr IV .Q10H [facility] Last Admin: 05/07/18 14:46 Dose: 100 mls/hr Iron Sucrose 200 mg/ Sodium (Chloride) 110 mls @ 110 mls/hr IVPB DAILY [facility] Stop: 05/13/18 11:16 Last Admin: 05/08/18 12:31 Dose: 110 mls/hr Insulin Detemir (Levemir) 5 unit SC Q12 [facility] Last Admin: 05/08/18 09:19 Dose: 5 units Insulin Human Regular (Humulin R High) 0 units SC ACHS [facility]; Protocol Losartan Potassium (Cozaar) 100 mg PO DAILY [facility] Last Admin: 05/08/18 09:17 Dose: 100 mg Nifedipine (Procardia Xl) 60 mg PO DAILY [facility] Last Admin: 05/08/18 09:19 Dose: 60 mg Home Med - Bisoprolol Fumarate 10mg 10 mg PO BID [facility] Last Admin: 05/08/18 17:45 Dose: 10 mg Ondansetron HCl (Zofran Inj) 4 mg IVP Q4H PRN PRN Reason: Nausea/Vomiting Last Admin: 05/08/18 20:25 Dose: 4 mg Oxycodone/Acetaminophen (Percocet 5/325 Mg Tab) 1 tab PO Q8H PRN PRN Reason: Pain, severe (8-10) Stop: 05/10/18 05:51 Polyethylene Glycol (Miralax) 17 gm PO BID [facility] Last Admin: 05/08/18 17:46 Dose: 17 gm Sodium Bicarbonate (Sodium Bicarbonate Tab) 1,300 mg PO BID [facility] Last Admin: 05/08/18 17:46 Dose: 1,300 mg Topiramate (Topamax) 50 mg PO DAILY [facility]; Protocol Last Admin: 05/08/18 09:20 Dose: 50 mg Vitamin B Complex/Vit C/Folic Acid (Nephro-Josias) 1 tab PO 0800 [facility] Last Admin: 05/08/18 09:19 Dose: 1 tab Results - Vital Signs Recent Vital Signs: Last Vital Signs Temp 98.2 F 05/08/18 17:38 Pulse 83 05/08/18 17:45 Resp 20 05/08/18 17:38 BP 145/87 05/08/18 17:45 Pulse Ox 98 05/08/18 17:38 - Labs Result Diagrams: 05/07/18 01:10 05/07/18 01:10 Labs: Laboratory Results - last 24 hr 05/07/18 05/07/18 05/08/18 19:23 21:04 07:36 POC Glucose (mg/dL) 173 H 169 H 117 H 05/08/18 05/08/18 05/08/18 11:26 15:58 21:04 POC Glucose (mg/dL) 240 H 195 H 170 H Attending/Attestation - Attestation I have personally seen and examined this patient.: Yes I have fully participated in the care of the patient.: Yes I have reviewed all pertinent clinical information: Yes Notes (Text): This is an addendum to GI consult report dictated by the Project Product Manager.The patient was seen and evaluated earlier. Medical records, lab studies, imagings were reviewed. Last 24 hours events reviewed. Agreed with the above treatment plan as outlined in Project Product Manager 's notes with the addition of the followin This 63 patient with the diabetes mellitus, chronic kidney disease, gastroparesis, on chronic narcotic for back pain was admitted with abdominal pain the CT scan was reviewed Patient does have distended stomach with bezoar and also a large amount of stool Patient was taking movantik at home for constipation induced by narcotics Would start the patient on of Gallon GoLYTELY in addition Change the diet to clear liquid d in view of the large amount of food present in the stomach and patient complains of epigastric discomfort this probably secondary to the gastric distention 05/08/18 21:32
--- NOTE | 2018-05-08 11:09 | CP.PCM.PN ---
Subjective - Date & Time of Evaluation Date of Evaluation: 05/08/18 Time of Evaluation: 11:07 - Subjective Subjective: Nephrology Consultation Note: Assessment: Stable Acute Kidney Injury (N17.9) likely due to pre-renal state HTN urgency pain abdomen Diabetic chronic Kidney Disease (E11.22) Hypertensive Chronic Kidney Disease (I12.9) Chronic Kidney Disease (N18.4) Stage 4 with ? mg proteinuria (R80.9) due to diabetic nephropathy Anemia (D64.9), Hyperphosphatemia (E83.39), Secondary Hyperparathyroidism (E21.1), HTN (I12.9). migraine Hypertriglyceridemia, metabolic acidosis Plan pt didn't allow labs today. No acute need for renal replacement therapy at this time. Hypertension control with meds as ordered. Maintain hemodynamics stable. Avoid hypotension. resume losartan. avoid dual RAAS blockade, hence no ACEI. continue with hydralazine. pt had been intolerant of norvasc in past. added procardia XL 60 mg/day. Monitor Input/Output, daily weights and renal function with basic metabolic panel will give IVF as NS continue with statins, iron and MVI sodium bicarb as 1300 mg bid. she takes monthly vit D at home. last PTH at goal for her CKD. avoid phlebotomy, IV line in non dominant arm GI following will give a dose of IV iron while in hospital. Dose meds/antibiotics for reduced GFR. Avoid fleets enema/magnesium based laxatives. Avoid nephrotoxins/NSAIDs/ iodinated contrast (unless needed emergently) Glycemic control Further work up/management as per primary team Thanks for allowing me to participate in care of your patient. Will follow patient with you. 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 she still c/o pain abdomen Denies OTC/herbal meds or NSAIDs No recent iodinated contrast exposure. No obvious episodes of low BP. very upset about her kidney disease diagnosis ROS: Cardiovascular: No chest pain. Pulmonary: No shortness of breath Gastrointestinal: c/o abdominal pain no nausea. No vomiting now. has constipation Genitourinary: No pain while urinating. Denies blood in urine. All other negative except as mentioned in HPI. also reports migraine headache Physical Examination: General Appearance: comfortable, in no acute respiratory distress, co-operative . Vitals reviewed and noted as below Head; Atraumatic, normocephalic ENT: no ulcers no thrush. Tongue is midline. Oropharynx: no rash or ulcers. EYES: Pupils are equal, round and reactive to light accommodation. Eye muscles and extraocular movement intact. Sclera is anicteric. Neck; supple no lymphadenopathy, no thyromegaly or bruit Lungs: Normal respiratory rate/effort. Breath sounds bilateral equal and clear Heart: Normal rate. s1s2 normal. No rub or gallop. Extremities: no edema. No varicose veins Neurological: Patient is alert, awake and oriented to person, place and time. No focal deficit. Strength bilateral appropriate and equal Skin: Warm and dry. Normal turgor. No rash. Palpitation: Normal elasticity for age Abdomen: Abdomen is soft. Bowel sounds +. There is mild epigastic abdominal tenderness, no guarding/rigidity no organomegaly Psych: normal insight and upset MSK: no joint tenderness or swelling. Digits and nails normal, no deformity : kidney or bladder not palpable Labs/imaging reviewed. Past medical history, past surgical history, family history, social history, allergy reviewed and noted as below Family hx: no hx of CKD. Rest non-contributory Objective - Vital Signs/Intake and Output Vital Signs (last 24 hours): Temp Pulse Resp BP Pulse Ox 98.9 F 81 20 145/79 97 05/08/18 06:00 05/08/18 09:16 05/08/18 06:00 05/08/18 09:19 05/08/18 06:00 Intake and Output: 05/08/18 05/08/18 06:59 18:59 Intake Total 2680 Output Total 400 Balance 2280 - Medications Medications: Current Medications Acetaminophen/Butalbital/Caffeine (Fioricet) 1 tab PO Q6H PRN PRN Reason: Headache Last Admin: 05/08/18 09:18 Dose: 1 tab Atorvastatin Calcium (Lipitor) 80 mg PO DIN [facility] Clonidine HCl (Catapres) 0.1 mg PO BID PRN PRN Reason: Systolic Blood Pressure > 170 Cyclobenzaprine HCl (Flexeril) 10 mg PO DAILY [facility] Last Admin: 05/08/18 09:18 Dose: 10 mg Docusate Sodium (Colace) 100 mg PO BID [facility] Last Admin: 05/08/18 09:17 Dose: 100 mg Famotidine (Pepcid) 20 mg PO HS [facility] Last Admin: 05/07/18 21:15 Dose: 20 mg Ferrous Sulfate (Feosol) 324 mg PO DAILY [facility] Last Admin: 05/08/18 09:18 Dose: 324 mg Heparin Sodium (Porcine) (Heparin) 5,000 units SC Q8 [facility]; Protocol Last Admin: 05/08/18 07:01 Dose: 5,000 units Hydralazine HCl (Apresoline) 50 mg PO TID [facility] Last Admin: 05/08/18 09:16 Dose: 50 mg Hydralazine HCl (Apresoline) 25 mg PO Q4 PRN PRN Reason: Other Sodium Chloride (Sodium Chloride 0.9%) 1,000 mls @ 100 mls/hr IV .Q10H [facility] Last Admin: 05/07/18 14:46 Dose: 100 mls/hr Insulin Detemir (Levemir) 5 unit SC Q12 [facility] Last Admin: 05/08/18 09:19 Dose: 5 units Insulin Human Regular (Humulin R High) 0 units SC ACHS [facility]; Protocol Last Admin: 05/08/18 08:41 Dose: Not Given Losartan Potassium (Cozaar) 100 mg PO DAILY [facility] Last Admin: 05/08/18 09:17 Dose: 100 mg Nifedipine (Procardia Xl) 60 mg PO DAILY [facility] Last Admin: 05/08/18 09:19 Dose: 60 mg Home Med - Bisoprolol Fumarate 10mg 10 mg PO BID [facility] Last Admin: 05/08/18 09:17 Dose: 10 mg Ondansetron HCl (Zofran Inj) 4 mg IVP Q4H PRN PRN Reason: Nausea/Vomiting Oxycodone/Acetaminophen (Percocet 5/325 Mg Tab) 1 tab PO Q8H PRN PRN Reason: Pain, severe (8-10) Stop: 05/10/18 05:51 Polyethylene Glycol (Miralax) 17 gm PO BID [facility] Last Admin: 05/08/18 09:19 Dose: 17 gm Sodium Bicarbonate (Sodium Bicarbonate Tab) 1,300 mg PO BID [facility] Last Admin: 05/08/18 09:20 Dose: 1,300 mg Topiramate (Topamax) 50 mg PO DAILY [facility]; Protocol Last Admin: 05/08/18 09:20 Dose: 50 mg Vitamin B Complex/Vit C/Folic Acid (Nephro-Josias) 1 tab PO 0800 [facility] Last Admin: 05/08/18 09:19 Dose: 1 tab - Labs Labs: 05/07/18 01:10 05/07/18 01:10 PT 10.7 SECONDS (9.4-12.5) 05/07/18 08:50 INR 0.93 05/07/18 08:50 APTT 27.6 Seconds (25.1-36.5) 05/07/18 08:50
--- NOTE | 2018-05-08 17:18 | CP.PCM.PN ---
<Gabe Mendoza - Last Filed: 05/08/18 17:49> Subjective - Date & Time of Evaluation Date of Evaluation: 05/08/18 Time of Evaluation: 17:14 - Subjective Subjective: Pt seen and examined, reports dull abdominal pain in the LUQ. Objective - Vital Signs/Intake and Output Vital Signs (last 24 hours): Temp Pulse Resp BP Pulse Ox 98.9 F 84 20 165/98 H 97 05/08/18 06:00 05/08/18 13:29 05/08/18 06:00 05/08/18 13:29 05/08/18 06:00 Intake and Output: 05/08/18 05/08/18 06:59 18:59 Intake Total 2680 Output Total 400 Balance 2280 - Medications Medications: Current Medications Acetaminophen/Butalbital/Caffeine (Fioricet) 1 tab PO Q6H PRN PRN Reason: Headache Last Admin: 05/08/18 09:18 Dose: 1 tab Atorvastatin Calcium (Lipitor) 80 mg PO DIN [facility] Clonidine HCl (Catapres) 0.1 mg PO BID PRN PRN Reason: Systolic Blood Pressure > 170 Cyclobenzaprine HCl (Flexeril) 10 mg PO DAILY [facility] Last Admin: 05/08/18 09:18 Dose: 10 mg Docusate Sodium (Colace) 100 mg PO BID [facility] Last Admin: 05/08/18 09:17 Dose: 100 mg Famotidine (Pepcid) 20 mg PO HS [facility] Last Admin: 05/07/18 21:15 Dose: 20 mg Heparin Sodium (Porcine) (Heparin) 5,000 units SC Q8 [facility]; Protocol Last Admin: 05/08/18 13:32 Dose: 5,000 units Hydralazine HCl (Apresoline) 50 mg PO TID [facility] Last Admin: 05/08/18 13:29 Dose: 50 mg Hydralazine HCl (Apresoline) 25 mg PO Q4 PRN PRN Reason: Other Sodium Chloride (Sodium Chloride 0.9%) 1,000 mls @ 100 mls/hr IV .Q10H [facility] Last Admin: 05/07/18 14:46 Dose: 100 mls/hr Iron Sucrose 200 mg/ Sodium (Chloride) 110 mls @ 110 mls/hr IVPB DAILY [facility] Stop: 05/13/18 11:16 Last Admin: 05/08/18 12:31 Dose: 110 mls/hr Insulin Detemir (Levemir) 5 unit SC Q12 [facility] Last Admin: 05/08/18 09:19 Dose: 5 units Insulin Human Regular (Humulin R High) 0 units SC ACHS [facility]; Protocol Last Admin: 05/08/18 11:34 Dose: 4 units Losartan Potassium (Cozaar) 100 mg PO DAILY [facility] Last Admin: 05/08/18 09:17 Dose: 100 mg Nifedipine (Procardia Xl) 60 mg PO DAILY [facility] Last Admin: 05/08/18 09:19 Dose: 60 mg Home Med - Bisoprolol Fumarate 10mg 10 mg PO BID [facility] Last Admin: 05/08/18 09:17 Dose: 10 mg Ondansetron HCl (Zofran Inj) 4 mg IVP Q4H PRN PRN Reason: Nausea/Vomiting Oxycodone/Acetaminophen (Percocet 5/325 Mg Tab) 1 tab PO Q8H PRN PRN Reason: Pain, severe (8-10) Stop: 05/10/18 05:51 Polyethylene Glycol (Miralax) 17 gm PO BID [facility] Last Admin: 05/08/18 09:19 Dose: 17 gm Sodium Bicarbonate (Sodium Bicarbonate Tab) 1,300 mg PO BID [facility] Last Admin: 05/08/18 09:20 Dose: 1,300 mg Topiramate (Topamax) 50 mg PO DAILY [facility]; Protocol Last Admin: 05/08/18 09:20 Dose: 50 mg Vitamin B Complex/Vit C/Folic Acid (Nephro-Josias) 1 tab PO 0800 [facility] Last Admin: 05/08/18 09:19 Dose: 1 tab - Labs Labs: 05/07/18 01:10 05/07/18 01:10 PT 10.7 SECONDS (9.4-12.5) 05/07/18 08:50 INR 0.93 05/07/18 08:50 APTT 27.6 Seconds (25.1-36.5) 05/07/18 08:50 - Head Exam Head Exam: ATRAUMATIC, NORMAL INSPECTION, NORMOCEPHALIC - Eye Exam Eye Exam: EOMI - ENT Exam ENT Exam: Mucous Membranes Moist - Neck Exam Neck Exam: Full ROM - Respiratory Exam Respiratory Exam: Clear to Ausculation Bilateral, NORMAL BREATHING PATTERN. absent: Accessory Muscle Use, Wheezes, Respiratory Distress - Cardiovascular Exam Cardiovascular Exam: RRR, +S1, +S2. absent: Diastolic murmur, Murmur - GI/Abdominal Exam GI & Abdominal Exam: Soft, Normal Bowel Sounds. absent: Tenderness - Extremities Exam Extremities Exam: Full ROM. absent: Pedal Edema, Tenderness - Neurological Exam Neurological Exam: Alert, Awake, Oriented x3 - Psychiatric Exam Psychiatric exam: Normal Affect, Normal Mood - Skin Skin Exam: Dry, Normal Color, Warm Assessment and Plan - Assessment and Plan (Free Text) Assessment: 63F w/ a PMH of CKD pending transplant, HTN, DM, GERD, Chronic Back pain, HLD, Constipation, Mirgraines; presented to [facility] [place] [facility] on 05/07 w/ a CC of LUQ pain which radiates into the L flank. Patient is admitted for management and work up of i ntractable LUQ/L Flank Pain. Plan: Intractable LUQ/L Flank Pain - Pain is most likely 2/2 to chronic constipation in the setting of opiate use - Flexeril 10 QD - Percocet 5/325 Q8H PRN - CTAP shows gastroparesis Constipation - Gastroparesis 2/2 Chronic Opiate use - Colace 100 BID - Miralax 17gm QD - GI rec: change pt diet to clear liquid, and give pt Golytely for constipation HTN - Hydralazine 50 TID - clonidine PRN DM - Levemir 5 Q12 - ISS High - Fingerstick ACHS - HA1C 8.3 Migraine Headache - Topamax [facility] - Firocet PRN - Hold home Lamictal - Pt reports she does not take CKD - Nephrology consulted, Dr. Miranda - Renal Diet - Hold Nephrotoxic agents - Holding James/ARB + Diuretics Ppx - Heparin - Pepcid Pt seen, examined, assessment, and plan with Dr Bertha Mendoza PGY1 <Nayeli Stone - Last Filed: 05/09/18 07:31> Objective - Vital Signs/Intake and Output Vital Signs (last 24 hours): Temp Pulse Resp BP Pulse Ox 98.2 F 83 20 145/87 98 05/08/18 17:38 05/08/18 17:45 05/08/18 17:38 05/08/18 17:45 05/08/18 17:38 Intake and Output: 05/09/18 05/09/18 06:59 18:59 Intake Total 240 Balance 240 - Medications Medications: Current Medications Acetaminophen/Butalbital/Caffeine (Fioricet) 1 tab PO Q6H PRN PRN Reason: Headache Last Admin: 05/08/18 09:18 Dose: 1 tab Atorvastatin Calcium (Lipitor) 80 mg PO DIN [facility] Last Admin: 05/08/18 17:46 Dose: 80 mg Clonidine HCl (Catapres) 0.1 mg PO BID PRN PRN Reason: Systolic Blood Pressure > 170 Cyclobenzaprine HCl (Flexeril) 10 mg PO DAILY [facility] Last Admin: 05/08/18 09:18 Dose: 10 mg Docusate Sodium (Colace) 100 mg PO BID [facility] Last Admin: 05/08/18 17:48 Dose: 100 mg Famotidine (Pepcid) 20 mg PO HS [facility] Last Admin: 05/08/18 22:23 Dose: 20 mg Gemfibrozil (Lopid) 600 mg PO BID [facility] Heparin Sodium (Porcine) (Heparin) 5,000 units SC Q8 [facility]; Protocol Last Admin: 05/09/18 06:01 Dose: 5,000 units Hydralazine HCl (Apresoline) 50 mg PO TID [facility] Last Admin: 05/08/18 17:45 Dose: 50 mg Hydralazine HCl (Apresoline) 25 mg PO Q4 PRN PRN Reason: Other Sodium Chloride (Sodium Chloride 0.9%) 1,000 mls @ 100 mls/hr IV .Q10H [facility] Last Admin: 05/07/18 14:46 Dose: 100 mls/hr Iron Sucrose 200 mg/ Sodium (Chloride) 110 mls @ 110 mls/hr IVPB DAILY [facility] Stop: 05/13/18 11:16 Last Admin: 05/08/18 12:31 Dose: 110 mls/hr Insulin Detemir (Levemir) 5 unit SC Q12 [facility] Last Admin: 05/08/18 22:24 Dose: 5 units Insulin Human Regular (Humulin R High) 0 units SC ACHS [facility]; Protocol Last Admin: 05/08/18 22:21 Dose: Not Given Losartan Potassium (Cozaar) 100 mg PO DAILY [facility] Last Admin: 05/08/18 09:17 Dose: 100 mg Nifedipine (Procardia Xl) 60 mg PO DAILY [facility] Last Admin: 05/08/18 09:19 Dose: 60 mg Home Med - Bisoprolol Fumarate 10mg 10 mg PO BID [facility] Last Admin: 05/08/18 17:45 Dose: 10 mg Ondansetron HCl (Zofran Inj) 4 mg IVP Q4H PRN PRN Reason: Nausea/Vomiting Last Admin: 05/08/18 20:25 Dose: 4 mg Oxycodone/Acetaminophen (Percocet 5/325 Mg Tab) 1 tab PO Q8H PRN PRN Reason: Pain, severe (8-10) Stop: 05/10/18 05:51 Last Admin: 05/09/18 00:59 Dose: 1 tab Polyethylene Glycol (Miralax) 17 gm PO BID [facility] Last Admin: 05/08/18 17:46 Dose: 17 gm Sodium Bicarbonate (Sodium Bicarbonate Tab) 1,300 mg PO BID [facility] Last Admin: 05/08/18 17:46 Dose: 1,300 mg Topiramate (Topamax) 50 mg PO DAILY [facility]; Protocol Last Admin: 05/08/18 09:20 Dose: 50 mg Vitamin B Complex/Vit C/Folic Acid (Nephro-Josias) 1 tab PO 0800 [facility] Last Admin: 05/08/18 09:19 Dose: 1 tab - Labs Labs: 05/07/18 01:10 05/07/18 01:10 PT 10.7 SECONDS (9.4-12.5) 05/07/18 08:50 INR 0.93 05/07/18 08:50 APTT 27.6 Seconds (25.1-36.5) 05/07/18 08:50 Attending/Attestation - Attestation I have personally seen and examined this patient.: Yes I have fully participated in the care of the patient.: Yes I have reviewed all pertinent clinical information, including history, physical exam and plan: Yes Notes (Text): 05/08/18 63 year old female with past medical history of CKD, hypertension, diabetes and chronic back pain who presented with complaint of abdominal pain and constipation. CT abd/pelvis showed constipation. Patient is on miralax and colace. GI evaluation was appreciated; will try golytely. Will decrease percocet frequency. She was counselled on risks of narcotic abuse. Nephrology is also following for CKD, anemia and hypertension. Patient refused labs this morning. Nayeli Stone MD Hospitalist.
[2018-05-08] MEDS ORDERED: Peg-Electrolyte Oral Soln 4L (Golytely) PO ONE (17:27)
[2018-05-09] MEDS: Oxycodone/Acetaminophen 5/325 mg Tab PO PRN ×4 (00:59→23:46)
[2018-05-09] MEDS: Insulin Reg-HIGH-Coverage SC SCH ×2 (07:57→13:09)
--- NOTE | 2018-05-09 07:57 | CP.PCM.PN ---
<Aaron Perez - Last Filed: 05/09/18 11:14> Subjective - Date & Time of Evaluation Date of Evaluation: 05/09/18 Time of Evaluation: 07:54 - Subjective Subjective: PGY-2 GI progress note for Dr Damon. No acute events noted overnight. She refused her AM labs this morning - stated she was tired of being stuck by needle. She still complained of epigastric discomfort however she stated it had improved mildly since yesterday. Stated she had a bowel movement yesterday after starting the golytly. Objective - Vital Signs/Intake and Output Vital Signs (last 24 hours): Temp Pulse Resp BP Pulse Ox 98.2 F 83 20 145/87 98 05/08/18 17:38 05/08/18 17:45 05/08/18 17:38 05/08/18 17:45 05/08/18 17:38 Intake and Output: 05/09/18 05/09/18 06:59 18:59 Intake Total 240 Balance 240 - Medications Medications: Current Medications Acetaminophen/Butalbital/Caffeine (Fioricet) 1 tab PO Q6H PRN PRN Reason: Headache Last Admin: 05/08/18 09:18 Dose: 1 tab Atorvastatin Calcium (Lipitor) 80 mg PO DIN [facility] Last Admin: 05/08/18 17:46 Dose: 80 mg Clonidine HCl (Catapres) 0.1 mg PO BID PRN PRN Reason: Systolic Blood Pressure > 170 Cyclobenzaprine HCl (Flexeril) 10 mg PO DAILY [facility] Last Admin: 05/08/18 09:18 Dose: 10 mg Docusate Sodium (Colace) 100 mg PO BID [facility] Last Admin: 05/08/18 17:48 Dose: 100 mg Famotidine (Pepcid) 20 mg PO HS [facility] Last Admin: 05/08/18 22:23 Dose: 20 mg Gemfibrozil (Lopid) 600 mg PO BID [facility] Heparin Sodium (Porcine) (Heparin) 5,000 units SC Q8 [facility]; Protocol Last Admin: 05/09/18 06:01 Dose: 5,000 units Hydralazine HCl (Apresoline) 50 mg PO TID [facility] Last Admin: 05/08/18 17:45 Dose: 50 mg Hydralazine HCl (Apresoline) 25 mg PO Q4 PRN PRN Reason: Other Sodium Chloride (Sodium Chloride 0.9%) 1,000 mls @ 100 mls/hr IV .Q10H [facility] Last Admin: 05/07/18 14:46 Dose: 100 mls/hr Iron Sucrose 200 mg/ Sodium (Chloride) 110 mls @ 110 mls/hr IVPB DAILY [facility] Stop: 05/13/18 11:16 Last Admin: 05/08/18 12:31 Dose: 110 mls/hr Insulin Detemir (Levemir) 5 unit SC Q12 [facility] Last Admin: 05/08/18 22:24 Dose: 5 units Insulin Human Regular (Humulin R High) 0 units SC ACHS [facility]; Protocol Last Admin: 05/08/18 22:21 Dose: Not Given Losartan Potassium (Cozaar) 100 mg PO DAILY [facility] Last Admin: 05/08/18 09:17 Dose: 100 mg Nifedipine (Procardia Xl) 60 mg PO DAILY [facility] Last Admin: 05/08/18 09:19 Dose: 60 mg Home Med - Bisoprolol Fumarate 10mg 10 mg PO BID [facility] Last Admin: 05/08/18 17:45 Dose: 10 mg Ondansetron HCl (Zofran Inj) 4 mg IVP Q4H PRN PRN Reason: Nausea/Vomiting Last Admin: 05/08/18 20:25 Dose: 4 mg Oxycodone/Acetaminophen (Percocet 5/325 Mg Tab) 1 tab PO Q8H PRN PRN Reason: Pain, severe (8-10) Stop: 05/10/18 05:51 Last Admin: 05/09/18 00:59 Dose: 1 tab Polyethylene Glycol (Miralax) 17 gm PO BID [facility] Last Admin: 05/08/18 17:46 Dose: 17 gm Sodium Bicarbonate (Sodium Bicarbonate Tab) 1,300 mg PO BID [facility] Last Admin: 05/08/18 17:46 Dose: 1,300 mg Topiramate (Topamax) 50 mg PO DAILY [facility]; Protocol Last Admin: 05/08/18 09:20 Dose: 50 mg Vitamin B Complex/Vit C/Folic Acid (Nephro-Josias) 1 tab PO 0800 [facility] Last Admin: 05/08/18 09:19 Dose: 1 tab - Labs Labs: 05/07/18 01:10 05/07/18 01:10 PT 10.7 SECONDS (9.4-12.5) 05/07/18 08:50 INR 0.93 05/07/18 08:50 APTT 27.6 Seconds (25.1-36.5) 05/07/18 08:50 - Additional Findings Additional findings: - Constitutional Appears: Well, Non-toxic, No Acute Distress - Head Exam Head Exam: ATRAUMATIC, NORMAL INSPECTION, NORMOCEPHALIC - Eye Exam Eye Exam: EOMI, Normal appearance, PERRL Pupil Exam: PERRL - ENT Exam ENT Exam: Mucous Membranes Moist, Normal Exam - Neck Exam Neck exam: Positive for: Normal Inspection - Respiratory Exam Respiratory Exam: Clear to Auscultation Bilateral, NORMAL BREATHING PATTERN. absent: Rales, Rhonchi, Wheezes, Respiratory Distress - Cardiovascular Exam Cardiovascular Exam: RRR, +S1, +S2. absent: Systolic Murmur - GI/Abdominal Exam GI & Abdominal Exam: Normal Bowel Sounds, Soft. absent: Tenderness - Extremities Exam Extremities exam: Positive for: normal inspection, pedal pulses present. Negative for: tenderness - Back Exam Back exam: absent: CVA tenderness (L), CVA tenderness (R), vertebral tenderness - Neurological Exam Neurological exam: Alert, CN II-XII Intact, Oriented x3 - Psychiatric Exam Psychiatric exam: Normal Affect, Normal Mood - Skin Skin Exam: Dry, Mottled, Warm Assessment and Plan - Assessment and Plan (Free Text) Plan: Mrs Keith is a 63 year old female with a PMHx of CKD pending transplant, HTN, DM, GERD, Chronic Back pain, HLD, Constipation, Mirgraines who presented to [facility] [place] for LUQ adbominal pain which radiates into the L flank that been worsening for the past 3 weeks. GI has been consulted for constipation: Constipation -last bowel movement 10 days ago which was soft -likely gastroparesis 2/2 chronic opioid use -has been receiving docusate 100mg po bid and miralax 17g po bid -patient was prescribed naloxegol 2 months ago (indicated for opioid-induced constipation) - she said this medication helps however she hasn't taken it in the past week (she said she only takes if 2 weeks go by without a bowel movement) - this medication is supposed to be taken once a day -started her on clear liquid diet 05/08 -administer 1/2 gallon of golytly 05/08 - administer another 1/2 gallon bhargavily 05/09 -change insulin coverage to low coverage and order for hypoglycemia protocol 05/08 -ct abd/pelvis w/o contrast showed stool throughout colon and rectum (as read by me - official read was unremarkable except previous anterior wall surgery) -plan for EGD 05/10 * continue bowel prep, npo after midnight, coags for tomorrow morning * consent obtained Previous GI Procedures: -she had a colonoscopy with Dr Damon in 07/2016 which showed a 8mm polyp (removed - path showed tubular adenoma), internal hemorrhoids and redundent colon. She also had an EGD with Dr Damon in 05/2016 which showed gastritis (path was negative). Case discussed with Dr Damon. <Abdirizak Damon V - Last Filed: 05/10/18 00:03> Objective - Vital Signs/Intake and Output Vital Signs (last 24 hours): Temp Pulse Resp BP Pulse Ox 98.3 F 77 20 165/89 H 97 05/09/18 17:36 05/09/18 17:36 05/09/18 17:36 05/09/18 17:36 05/09/18 17:36 - Medications Medications: Current Medications Acetaminophen/Butalbital/Caffeine (Fioricet) 1 tab PO Q6H PRN PRN Reason: Headache Last Admin: 05/09/18 14:01 Dose: 1 tab Atorvastatin Calcium (Lipitor) 80 mg PO DIN [facility] Last Admin: 05/09/18 17:24 Dose: 80 mg Clonidine HCl (Catapres) 0.1 mg PO BID PRN PRN Reason: Systolic Blood Pressure > 170 Cyclobenzaprine HCl (Flexeril) 10 mg PO DAILY [facility] Last Admin: 05/09/18 09:34 Dose: 10 mg Dextrose (Dextrose 50% Inj) 0 ml IV STAT PRN; Protocol PRN Reason: Hypoglycemia Protocol Docusate Sodium (Colace) 100 mg PO BID [facility] Last Admin: 05/09/18 17:24 Dose: 100 mg Famotidine (Pepcid) 20 mg PO HS [facility] Last Admin: 05/09/18 21:37 Dose: 20 mg Gemfibrozil (Lopid) 600 mg PO BID [facility] Last Admin: 05/09/18 17:24 Dose: 600 mg Heparin Sodium (Porcine) (Heparin) 5,000 units SC Q8 [facility]; Protocol Last Admin: 05/09/18 21:37 Dose: 5,000 units Hydralazine HCl (Apresoline) 50 mg PO TID [facility] Last Admin: 05/09/18 17:22 Dose: 50 mg Hydralazine HCl (Apresoline) 25 mg PO Q4 PRN PRN Reason: Other Sodium Chloride (Sodium Chloride 0.9%) 1,000 mls @ 100 mls/hr IV .Q10H [facility] Last Admin: 05/09/18 17:27 Dose: 100 mls/hr Iron Sucrose 200 mg/ Sodium (Chloride) 110 mls @ 110 mls/hr IVPB DAILY [facility] Stop: 05/13/18 11:16 Last Admin: 05/09/18 09:37 Dose: 110 mls/hr Dextrose (Dextrose 5% In Water 1000 Ml) 1,000 mls @ 0 mls/hr IV .Q0M PRN; Protocol PRN Reason: Hypoglycemia Protocol Insulin Detemir (Levemir) 5 unit SC Q12 [facility] Last Admin: 05/09/18 21:06 Dose: Not Given Insulin Human Regular (Humulin R Low) 0 units SC ACHS [facility]; Protocol Last Admin: 05/09/18 21:05 Dose: Not Given Losartan Potassium (Cozaar) 100 mg PO DAILY [facility] Last Admin: 05/09/18 09:33 Dose: 100 mg Nifedipine (Procardia Xl) 60 mg PO DAILY [facility] Last Admin: 05/09/18 09:35 Dose: 60 mg Home Med - Bisoprolol Fumarate 10mg 10 mg PO BID [facility] Last Admin: 05/09/18 17:23 Dose: 10 mg Ondansetron HCl (Zofran Inj) 4 mg IVP Q4H PRN PRN Reason: Nausea/Vomiting Last Admin: 05/09/18 21:37 Dose: 4 mg Oxycodone/Acetaminophen (Percocet 5/325 Mg Tab) 1 tab PO Q8H PRN PRN Reason: Pain, severe (8-10) Stop: 05/10/18 05:51 Last Admin: 05/09/18 23:46 Dose: 1 tab Polyethylene Glycol (Miralax) 17 gm PO BID [facility] Last Admin: 05/09/18 17:25 Dose: 17 gm Sodium Bicarbonate (Sodium Bicarbonate Tab) 1,300 mg PO BID [facility] Last Admin: 05/09/18 09:36 Dose: 1,300 mg Topiramate (Topamax) 50 mg PO DAILY [facility]; Protocol Last Admin: 05/09/18 09:36 Dose: 50 mg Vitamin B Complex/Vit C/Folic Acid (Nephro-Josias) 1 tab PO 0800 [facility] Last Admin: 05/09/18 08:08 Dose: 1 tab - Labs Labs: 05/07/18 01:10 05/07/18 01:10 PT 10.7 SECONDS (9.4-12.5) 05/07/18 08:50 INR 0.93 05/07/18 08:50 APTT 27.6 Seconds (25.1-36.5) 05/07/18 08:50 Attending/Attestation - Attestation I have personally seen and examined this patient.: Yes I have fully participated in the care of the patient.: Yes I have reviewed all pertinent clinical information, including history, physical exam and plan: Yes Notes (Text): This is an addendum to GI followup report dictated by the Optical Engineer. The patient was seen and evaluated earlier. Medical records, lab studies, imagings were reviewed. Last 24 hours events reviewed. Agreed with the above treatment plan as outlined in Optical Engineer 's notes with the addition of the following Patient did have bowel movements after the half a gallon of GoLYTELY ordered another half a gallon today Continue clear liquid diet Patient significant gastric food bezoar which was noticed on review he CT Would benefit from EGD and this will consider it based on her clinical course 05/10/18 00:01
[2018-05-09] MEDS: Multivitamin Vitamin B Complex (Nephro-Vite) Tab PO SCH (08:08)
--- NOTE | 2018-05-09 08:24 | CP.PCM.PN ---
Subjective - Date & Time of Evaluation Date of Evaluation: 05/09/18 Time of Evaluation: 08:18 - Subjective Subjective: Pt seen and examined this morning. Pt reports drinking the Golytely last night, she reports moving her bowels. Objective - Vital Signs/Intake and Output Vital Signs (last 24 hours): Temp Pulse Resp BP Pulse Ox 98.2 F 83 20 145/87 98 05/08/18 17:38 05/08/18 17:45 05/08/18 17:38 05/08/18 17:45 05/08/18 17:38 Intake and Output: 05/09/18 05/09/18 06:59 18:59 Intake Total 240 Balance 240 - Medications Medications: Current Medications Acetaminophen/Butalbital/Caffeine (Fioricet) 1 tab PO Q6H PRN PRN Reason: Headache Last Admin: 05/08/18 09:18 Dose: 1 tab Atorvastatin Calcium (Lipitor) 80 mg PO DIN [facility] Last Admin: 05/08/18 17:46 Dose: 80 mg Clonidine HCl (Catapres) 0.1 mg PO BID PRN PRN Reason: Systolic Blood Pressure > 170 Cyclobenzaprine HCl (Flexeril) 10 mg PO DAILY [facility] Last Admin: 05/08/18 09:18 Dose: 10 mg Docusate Sodium (Colace) 100 mg PO BID [facility] Last Admin: 05/08/18 17:48 Dose: 100 mg Famotidine (Pepcid) 20 mg PO HS [facility] Last Admin: 05/08/18 22:23 Dose: 20 mg Gemfibrozil (Lopid) 600 mg PO BID [facility] Heparin Sodium (Porcine) (Heparin) 5,000 units SC Q8 [facility]; Protocol Last Admin: 05/09/18 06:01 Dose: 5,000 units Hydralazine HCl (Apresoline) 50 mg PO TID [facility] Last Admin: 05/08/18 17:45 Dose: 50 mg Hydralazine HCl (Apresoline) 25 mg PO Q4 PRN PRN Reason: Other Sodium Chloride (Sodium Chloride 0.9%) 1,000 mls @ 100 mls/hr IV .Q10H [facility] Last Admin: 05/07/18 14:46 Dose: 100 mls/hr Iron Sucrose 200 mg/ Sodium (Chloride) 110 mls @ 110 mls/hr IVPB DAILY [facility] Stop: 05/13/18 11:16 Last Admin: 05/08/18 12:31 Dose: 110 mls/hr Insulin Detemir (Levemir) 5 unit SC Q12 [facility] Last Admin: 05/08/18 22:24 Dose: 5 units Insulin Human Regular (Humulin R High) 0 units SC ACHS [facility]; Protocol Last Admin: 05/09/18 07:57 Dose: Not Given Losartan Potassium (Cozaar) 100 mg PO DAILY [facility] Last Admin: 05/08/18 09:17 Dose: 100 mg Nifedipine (Procardia Xl) 60 mg PO DAILY [facility] Last Admin: 05/08/18 09:19 Dose: 60 mg Home Med - Bisoprolol Fumarate 10mg 10 mg PO BID [facility] Last Admin: 05/08/18 17:45 Dose: 10 mg Ondansetron HCl (Zofran Inj) 4 mg IVP Q4H PRN PRN Reason: Nausea/Vomiting Last Admin: 05/08/18 20:25 Dose: 4 mg Oxycodone/Acetaminophen (Percocet 5/325 Mg Tab) 1 tab PO Q8H PRN PRN Reason: Pain, severe (8-10) Stop: 05/10/18 05:51 Last Admin: 05/09/18 08:09 Dose: 1 tab Polyethylene Glycol (Miralax) 17 gm PO BID [facility] Last Admin: 05/08/18 17:46 Dose: 17 gm Sodium Bicarbonate (Sodium Bicarbonate Tab) 1,300 mg PO BID [facility] Last Admin: 05/08/18 17:46 Dose: 1,300 mg Topiramate (Topamax) 50 mg PO DAILY [facility]; Protocol Last Admin: 05/08/18 09:20 Dose: 50 mg Vitamin B Complex/Vit C/Folic Acid (Nephro-Josias) 1 tab PO 0800 [facility] Last Admin: 05/09/18 08:08 Dose: 1 tab - Labs Labs: 05/07/18 01:10 05/07/18 01:10 PT 10.7 SECONDS (9.4-12.5) 05/07/18 08:50 INR 0.93 05/07/18 08:50 APTT 27.6 Seconds (25.1-36.5) 05/07/18 08:50
[2018-05-09] MEDS: BISOPROLOL FUMARATE 10 MG PO SCH ×2 (09:31→17:23)
[2018-05-09] MEDS: POLYETHYLENE GLYCOL 3350 17 GM/Dose PACKET PO SCH ×2 (09:34→17:25)
[2018-05-09] MEDS: NIFEdipine 60 mg ER Tab PO SCH (09:35)
[2018-05-09] MEDS: Sodium Chloride 0.9% 1,000 ML IV SCH ×2 (09:36→17:27)
--- NOTE | 2018-05-09 09:54 | CP.PCM.PN ---
Subjective - Date & Time of Evaluation Date of Evaluation: 05/09/18 Time of Evaluation: 09:54 - Subjective Subjective: Patient awake and conscious No nausea or vomiting Abdominal pain appeared to be subsided Vital signs stable Objective - Vital Signs/Intake and Output Vital Signs (last 24 hours): Temp Pulse Resp BP Pulse Ox 98.2 F 98 H 20 151/90 H 98 05/08/18 17:38 05/09/18 09:35 05/08/18 17:38 05/09/18 09:35 05/08/18 17:38 Intake and Output: 05/09/18 05/09/18 06:59 18:59 Intake Total 240 Balance 240 - Medications Medications: Current Medications Acetaminophen/Butalbital/Caffeine (Fioricet) 1 tab PO Q6H PRN PRN Reason: Headache Last Admin: 05/08/18 09:18 Dose: 1 tab Atorvastatin Calcium (Lipitor) 80 mg PO DIN [facility] Last Admin: 05/08/18 17:46 Dose: 80 mg Clonidine HCl (Catapres) 0.1 mg PO BID PRN PRN Reason: Systolic Blood Pressure > 170 Cyclobenzaprine HCl (Flexeril) 10 mg PO DAILY [facility] Last Admin: 05/09/18 09:34 Dose: 10 mg Docusate Sodium (Colace) 100 mg PO BID [facility] Last Admin: 05/09/18 09:33 Dose: 100 mg Famotidine (Pepcid) 20 mg PO HS [facility] Last Admin: 05/08/18 22:23 Dose: 20 mg Gemfibrozil (Lopid) 600 mg PO BID [facility] Last Admin: 05/09/18 09:34 Dose: 600 mg Heparin Sodium (Porcine) (Heparin) 5,000 units SC Q8 [facility]; Protocol Last Admin: 05/09/18 06:01 Dose: 5,000 units Hydralazine HCl (Apresoline) 50 mg PO TID [facility] Last Admin: 05/09/18 09:30 Dose: 50 mg Hydralazine HCl (Apresoline) 25 mg PO Q4 PRN PRN Reason: Other Sodium Chloride (Sodium Chloride 0.9%) 1,000 mls @ 100 mls/hr IV .Q10H [facility] Last Admin: 05/09/18 09:36 Dose: 100 mls/hr Iron Sucrose 200 mg/ Sodium (Chloride) 110 mls @ 110 mls/hr IVPB DAILY [facility] Stop: 05/13/18 11:16 Last Admin: 05/09/18 09:37 Dose: 110 mls/hr Insulin Detemir (Levemir) 5 unit SC Q12 [facility] Last Admin: 05/08/18 22:24 Dose: 5 units Insulin Human Regular (Humulin R High) 0 units SC ACHS [facility]; Protocol Last Admin: 05/09/18 07:57 Dose: Not Given Losartan Potassium (Cozaar) 100 mg PO DAILY [facility] Last Admin: 05/09/18 09:33 Dose: 100 mg Nifedipine (Procardia Xl) 60 mg PO DAILY [facility] Last Admin: 05/09/18 09:35 Dose: 60 mg Home Med - Bisoprolol Fumarate 10mg 10 mg PO BID [facility] Last Admin: 05/09/18 09:31 Dose: 10 mg Ondansetron HCl (Zofran Inj) 4 mg IVP Q4H PRN PRN Reason: Nausea/Vomiting Last Admin: 05/08/18 20:25 Dose: 4 mg Oxycodone/Acetaminophen (Percocet 5/325 Mg Tab) 1 tab PO Q8H PRN PRN Reason: Pain, severe (8-10) Stop: 05/10/18 05:51 Last Admin: 05/09/18 08:09 Dose: 1 tab Polyethylene Glycol (Miralax) 17 gm PO BID [facility] Last Admin: 05/09/18 09:34 Dose: 17 gm Polyethylene Glycol/Electrolytes (Golytely) 2,000 ml PO ONCE ONE Stop: 05/09/18 11:01 Sodium Bicarbonate (Sodium Bicarbonate Tab) 1,300 mg PO BID [facility] Last Admin: 05/09/18 09:36 Dose: 1,300 mg Topiramate (Topamax) 50 mg PO DAILY [facility]; Protocol Last Admin: 05/09/18 09:36 Dose: 50 mg Vitamin B Complex/Vit C/Folic Acid (Nephro-Josias) 1 tab PO 0800 [facility] Last Admin: 05/09/18 08:08 Dose: 1 tab - Labs Labs: 05/07/18 01:10 05/07/18 01:10 PT 10.7 SECONDS (9.4-12.5) 05/07/18 08:50 INR 0.93 05/07/18 08:50 APTT 27.6 Seconds (25.1-36.5) 05/07/18 08:50 - Constitutional Appears: No Acute Distress - Eye Exam Eye Exam: Conjunctival injection - ENT Exam ENT Exam: Mucous Membranes Moist - Neck Exam Neck Exam: absent: Lymphadenopathy - Cardiovascular Exam Cardiovascular Exam: absent: Gallop, JVD, Rubs - GI/Abdominal Exam GI & Abdominal Exam: Soft, Normal Bowel Sounds - Extremities Exam Extremities Exam: absent: Calf Tenderness - Back Exam Back Exam: absent: CVA tenderness (L), CVA tenderness (R) - Neurological Exam Neurological Exam: Alert - Psychiatric Exam Psychiatric exam: Normal Affect - Skin Skin Exam: absent: Cyanosis Assessment and Plan - Assessment and Plan (Free Text) Assessment: Assessment: Stable Acute Kidney Injury (N17.9) likely due to pre-renal state HTN urgency pain abdomen Diabetic chronic Kidney Disease (E11.22) Hypertensive Chronic Kidney Disease (I12.9) Chronic Kidney Disease (N18.4) Stage 4 with ? 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 migraine Hypertriglyceridemia, metabolic acidosis Recommendation Patient is stable clinically Patient will need venous mapping perhaps as outpatient. Patient receiving intravenous iron on yesterday however iron saturation appears to be adequate at the present 43
[2018-05-09] MEDS ORDERED: Peg-Electrolyte Oral Soln 4L (Golytely) PO ONE (11:00)
[2018-05-09] MEDS: Insulin Detemir 100 units/ml Vial (Levemir) SC SCH ×2 (13:09→21:06)
[2018-05-09] MEDS: Apap-Butalbital-Caffeine 325-50-40mg Tab PO PRN (14:01)
--- NOTE | 2018-05-09 16:07 | CP.PCM.PN ---
<Gabe Mendoza - Last Filed: 05/09/18 16:19> Subjective - Date & Time of Evaluation Date of Evaluation: 05/09/18 Time of Evaluation: 07:00 - Subjective Subjective: Pt seen and examined this morning. Pt had two bowel movements after drinking Golytely last night. Objective - Vital Signs/Intake and Output Vital Signs (last 24 hours): Temp Pulse Resp BP Pulse Ox 98.2 F 82 20 148/80 99 05/09/18 06:00 05/09/18 14:00 05/09/18 06:00 05/09/18 14:00 05/09/18 06:00 Intake and Output: 05/09/18 05/09/18 06:59 18:59 Intake Total 240 Balance 240 - Medications Medications: Current Medications Acetaminophen/Butalbital/Caffeine (Fioricet) 1 tab PO Q6H PRN PRN Reason: Headache Last Admin: 05/09/18 14:01 Dose: 1 tab Atorvastatin Calcium (Lipitor) 80 mg PO DIN [facility] Last Admin: 05/08/18 17:46 Dose: 80 mg Clonidine HCl (Catapres) 0.1 mg PO BID PRN PRN Reason: Systolic Blood Pressure > 170 Cyclobenzaprine HCl (Flexeril) 10 mg PO DAILY [facility] Last Admin: 05/09/18 09:34 Dose: 10 mg Docusate Sodium (Colace) 100 mg PO BID [facility] Last Admin: 05/09/18 09:33 Dose: 100 mg Famotidine (Pepcid) 20 mg PO HS [facility] Last Admin: 05/08/18 22:23 Dose: 20 mg Gemfibrozil (Lopid) 600 mg PO BID [facility] Last Admin: 05/09/18 09:34 Dose: 600 mg Heparin Sodium (Porcine) (Heparin) 5,000 units SC Q8 [facility]; Protocol Last Admin: 05/09/18 14:00 Dose: 5,000 units Hydralazine HCl (Apresoline) 50 mg PO TID [facility] Last Admin: 05/09/18 14:00 Dose: 50 mg Hydralazine HCl (Apresoline) 25 mg PO Q4 PRN PRN Reason: Other Sodium Chloride (Sodium Chloride 0.9%) 1,000 mls @ 100 mls/hr IV .Q10H [facility] Last Admin: 05/09/18 09:36 Dose: 100 mls/hr Iron Sucrose 200 mg/ Sodium (Chloride) 110 mls @ 110 mls/hr IVPB DAILY [facility] Stop: 05/13/18 11:16 Last Admin: 05/09/18 09:37 Dose: 110 mls/hr Insulin Detemir (Levemir) 5 unit SC Q12 [facility] Last Admin: 05/09/18 13:09 Dose: Not Given Insulin Human Regular (Humulin R High) 0 units SC ACHS [facility]; Protocol Last Admin: 05/09/18 13:09 Dose: Not Given Losartan Potassium (Cozaar) 100 mg PO DAILY [facility] Last Admin: 05/09/18 09:33 Dose: 100 mg Nifedipine (Procardia Xl) 60 mg PO DAILY [facility] Last Admin: 05/09/18 09:35 Dose: 60 mg Home Med - Bisoprolol Fumarate 10mg 10 mg PO BID [facility] Last Admin: 05/09/18 09:31 Dose: 10 mg Ondansetron HCl (Zofran Inj) 4 mg IVP Q4H PRN PRN Reason: Nausea/Vomiting Last Admin: 05/09/18 14:02 Dose: 4 mg Oxycodone/Acetaminophen (Percocet 5/325 Mg Tab) 1 tab PO Q8H PRN PRN Reason: Pain, severe (8-10) Stop: 05/10/18 05:51 Last Admin: 05/09/18 08:09 Dose: 1 tab Polyethylene Glycol (Miralax) 17 gm PO BID [facility] Last Admin: 05/09/18 09:34 Dose: 17 gm Sodium Bicarbonate (Sodium Bicarbonate Tab) 1,300 mg PO BID [facility] Last Admin: 05/09/18 09:36 Dose: 1,300 mg Topiramate (Topamax) 50 mg PO DAILY [facility]; Protocol Last Admin: 05/09/18 09:36 Dose: 50 mg Vitamin B Complex/Vit C/Folic Acid (Nephro-Josias) 1 tab PO 0800 [facility] Last Admin: 05/09/18 08:08 Dose: 1 tab - Labs Labs: 05/07/18 01:10 05/07/18 01:10 PT 10.7 SECONDS (9.4-12.5) 05/07/18 08:50 INR 0.93 05/07/18 08:50 APTT 27.6 Seconds (25.1-36.5) 05/07/18 08:50 - Constitutional Appears: Non-toxic, No Acute Distress - Head Exam Head Exam: ATRAUMATIC, NORMAL INSPECTION, NORMOCEPHALIC - Eye Exam Eye Exam: EOMI - ENT Exam ENT Exam: Mucous Membranes Moist - Neck Exam Neck Exam: Full ROM - Respiratory Exam Respiratory Exam: Clear to Ausculation Bilateral, NORMAL BREATHING PATTERN. absent: Accessory Muscle Use, Wheezes, Respiratory Distress, Stridor - Cardiovascular Exam Cardiovascular Exam: RRR, +S1, +S2. absent: Diastolic murmur, Murmur - GI/Abdominal Exam GI & Abdominal Exam: Soft, Normal Bowel Sounds. absent: Tenderness Additional comments: mild tenderness to palpation LUQ - Extremities Exam Extremities Exam: Full ROM. absent: Pedal Edema, Tenderness - Neurological Exam Neurological Exam: Alert, Oriented x3 - Psychiatric Exam Psychiatric exam: Normal Affect, Normal Mood - Skin Skin Exam: Dry, Normal Color, Warm Assessment and Plan - Assessment and Plan (Free Text) Assessment: 63F w/ a PMH of CKD pending transplant, HTN, DM, GERD, Chronic Back pain, HLD, Constipation, Migraines; presented to [facility] on 05/07 w/ a CC of LUQ pain which radiates into the L flank. Patient is admitted for management and work up of intractable LUQ/L Flank Pain. Plan: Intractable LUQ pain - Likely 2/2 to chronic constipation in the setting of chronic opiate use - GI has plan for EGD 05/10, pt NPO after midnight - CTAP shows gastroparesis. Per GI Dr. Damon, pt has distended stomach with Bezoar, and large amount of stool throughout GI tract. - Flexeril 10 QD - Percocet 5/325 Q8H PRN - Zofran PRN Constipation - Gastroparesis 2/2 Chronic Opiate use - Colace 100 BID - Miralax 17gm BID - clear liquid diet, NPO after midnight for EGD 05/10 per GI - had 1/2 gallon of Golytely last night and had two BM over night. Will get another 1/2 gallon of Golytely today. HTN - Hydralazine 50 TID - Nifedipine ER 60 daily - Losartan 100 daily - clonidine PRN - Hydralazine 25 q4 PRN - Bisoprolol home med 10 BID DM - Levemir 5 Q12 - ISS Low - Hypoglycemic protocol - Fingerstick ACHS - HA1C 8.3 Migraine Headache - Topamax [facility] - Firocet PRN - Hold home Lamictal - Pt reports she does not take CKD - Nephrology consulted, Dr. Miranda - Pt has been refusing labs since admission but is clinically stable. Encouraged pt to agree to have labs drawn. - Clear liquid diet - Hold Nephrotoxic agents - Holding DEANDRA to avoid dual RAAS blockade + Diuretics HLD - TG 910 - Chol 499 - Lipitor 80 daily - Gemfibrozil 600 BID Ppx - Heparin - Pepcid Pt seen, examined, assessment, and plan discussed with Dr Bertha Mendoza PGY1 <Nayeli Stone - Last Filed: 05/09/18 17:59> Objective - Vital Signs/Intake and Output Vital Signs (last 24 hours): Temp Pulse Resp BP Pulse Ox 98.3 F 77 20 165/89 H 97 05/09/18 17:36 05/09/18 17:36 05/09/18 17:36 05/09/18 17:36 05/09/18 17:36 Intake and Output: 05/09/18 05/09/18 06:59 18:59 Intake Total 240 Balance 240 - Medications Medications: Current Medications Acetaminophen/Butalbital/Caffeine (Fioricet) 1 tab PO Q6H PRN PRN Reason: Headache Last Admin: 05/09/18 14:01 Dose: 1 tab Atorvastatin Calcium (Lipitor) 80 mg PO DIN [facility] Last Admin: 05/09/18 17:24 Dose: 80 mg Clonidine HCl (Catapres) 0.1 mg PO BID PRN PRN Reason: Systolic Blood Pressure > 170 Cyclobenzaprine HCl (Flexeril) 10 mg PO DAILY [facility] Last Admin: 05/09/18 09:34 Dose: 10 mg Dextrose (Dextrose 50% Inj) 0 ml IV STAT PRN; Protocol PRN Reason: Hypoglycemia Protocol Docusate Sodium (Colace) 100 mg PO BID [facility] Last Admin: 05/09/18 17:24 Dose: 100 mg Famotidine (Pepcid) 20 mg PO HS [facility] Last Admin: 05/08/18 22:23 Dose: 20 mg Gemfibrozil (Lopid) 600 mg PO BID [facility] Last Admin: 05/09/18 17:24 Dose: 600 mg Heparin Sodium (Porcine) (Heparin) 5,000 units SC Q8 [facility]; Protocol Last Admin: 05/09/18 14:00 Dose: 5,000 units Hydralazine HCl (Apresoline) 50 mg PO TID [facility] Last Admin: 05/09/18 17:22 Dose: 50 mg Hydralazine HCl (Apresoline) 25 mg PO Q4 PRN PRN Reason: Other Sodium Chloride (Sodium Chloride 0.9%) 1,000 mls @ 100 mls/hr IV .Q10H [facility] Last Admin: 05/09/18 17:27 Dose: 100 mls/hr Iron Sucrose 200 mg/ Sodium (Chloride) 110 mls @ 110 mls/hr IVPB DAILY [facility] Stop: 05/13/18 11:16 Last Admin: 05/09/18 09:37 Dose: 110 mls/hr Dextrose (Dextrose 5% In Water 1000 Ml) 1,000 mls @ 0 mls/hr IV .Q0M PRN; Protocol PRN Reason: Hypoglycemia Protocol Insulin Detemir (Levemir) 5 unit SC Q12 [facility] Last Admin: 05/09/18 13:09 Dose: Not Given Insulin Human Regular (Humulin R Low) 0 units SC ACHS [facility]; Protocol Last Admin: 05/09/18 16:23 Dose: Not Given Losartan Potassium (Cozaar) 100 mg PO DAILY [facility] Last Admin: 05/09/18 09:33 Dose: 100 mg Nifedipine (Procardia Xl) 60 mg PO DAILY [facility] Last Admin: 05/09/18 09:35 Dose: 60 mg Home Med - Bisoprolol Fumarate 10mg 10 mg PO BID [facility] Last Admin: 05/09/18 17:23 Dose: 10 mg Ondansetron HCl (Zofran Inj) 4 mg IVP Q4H PRN PRN Reason: Nausea/Vomiting Last Admin: 05/09/18 14:02 Dose: 4 mg Oxycodone/Acetaminophen (Percocet 5/325 Mg Tab) 1 tab PO Q8H PRN PRN Reason: Pain, severe (8-10) Stop: 05/10/18 05:51 Last Admin: 05/09/18 16:15 Dose: 1 tab Polyethylene Glycol (Miralax) 17 gm PO BID [facility] Last Admin: 05/09/18 17:25 Dose: 17 gm Sodium Bicarbonate (Sodium Bicarbonate Tab) 1,300 mg PO BID [facility] Last Admin: 05/09/18 09:36 Dose: 1,300 mg Topiramate (Topamax) 50 mg PO DAILY [facility]; Protocol Last Admin: 05/09/18 09:36 Dose: 50 mg Vitamin B Complex/Vit C/Folic Acid (Nephro-Josias) 1 tab PO 0800 [facility] Last Admin: 05/09/18 08:08 Dose: 1 tab - Labs Labs: 05/07/18 01:10 05/07/18 01:10 PT 10.7 SECONDS (9.4-12.5) 05/07/18 08:50 INR 0.93 05/07/18 08:50 APTT 27.6 Seconds (25.1-36.5) 05/07/18 08:50 Attending/Attestation - Attestation I have personally seen and examined this patient.: Yes I have fully participated in the care of the patient.: Yes I have reviewed all pertinent clinical information, including history, physical exam and plan: Yes Notes (Text): 05/09/18 17:58 63 year old female with past medical history of CKD, hypertension, diabetes and chronic back pain who presented with complaint of abdominal pain and constipation. CT abd/pelvis showed constipation. Patient is on miralax and colace. She also received golytely yesterday with improvement of symptoms. GI is following and plan is for EGD tomorrow. She was counselled on risks of narcotic abuse. Nephrology is also following for CKD, anemia and hypertension. Patient refused labs this morning but states she will have it drawn later today. Nayeli Stone MD Hospitalist.
[2018-05-09] MEDS ORDERED: Dextrose 50% SYRINGE Inj (50 ml) IV PRN (16:18)
[2018-05-09] MEDS: Insulin Reg-LOW-Coverage SC SCH ×2 (16:23→21:05)
[2018-05-10] MEDS: Sodium Chloride 0.9% 1,000 ML IV SCH (01:16)
[2018-05-10 07:00] LABS: INR 0.95; PARTIAL THROMBOPLASTIN TIME 36.7 Seconds (25.1-36.5); PROTHROMBIN TIME 10.9 SECONDS (9.4-12.5)
[2018-05-10 07:13] LABS: BASO # 0.03 K/mm3 (0.0-2.0); BASO % 0.5 % (0.0-3.0); EOS # 0.3 (0.0-0.7); EOS % 3.8 % (1.5-5.0); GRAN # 4.08 (1.4-6.5); GRAN % 62.4 % (50.0-68.0); HEMOGLOBIN 8.3 g/dL (12.0-16.0); LYMPH # 1.8 (1.2-3.4); LYMPH % 28.1 % (22.0-35.0); MEAN CELL VOLUME 88.8 fl (80.0-105.0); MEAN CORPUSCULAR HEMOGLOBIN 29.1 pg (25.0-35.0); MEAN CORPUSCULAR HGB CONC 32.8 g/dl (31.0-37.0); MEAN PLATELET VOLUME 9.9 fl (7.0-11.0); MONO # 0.3 (0.1-0.6); MONO % 5.2 % (1.0-6.0); RBC 2.85 10^6/uL (3.5-6.1); RED CELL DISTRIBUTION WIDTH 13.9 % (11.5-14.5); WHITE BLOOD COUNT 6.5 10^3/uL (4.5-11.0)
[2018-05-10 07:38] LABS: ALB/GLOB RATIO 0.9 (1.1-1.8); ALBUMIN 2.8 g/dL (3.0-4.8); CALCIUM 8.4 mg/dL (8.4-10.5)
[2018-05-10] MEDS ORDERED: Oxycodone/Acetaminophen 5/325 mg Tab PO PRN (07:43)
[2018-05-10] MEDS: Insulin Reg-LOW-Coverage SC SCH ×2 (08:13→11:47)
[2018-05-10] MEDS: Multivitamin Vitamin B Complex (Nephro-Vite) Tab PO SCH (09:02)
--- NOTE | 2018-05-10 09:44 | CP.PCM.PN ---
Subjective - Date & Time of Evaluation Date of Evaluation: 05/10/18 Time of Evaluation: 09:37 - Subjective Subjective: Nephrology Consultation Note: Assessment: Stable Acute Kidney Injury (N17.9) likely due to pre-renal state HTN urgency pain abdomen Diabetic chronic Kidney Disease (E11.22) Hypertensive Chronic Kidney Disease (I12.9) Chronic Kidney Disease (N18.4) Stage 4 with ? mg proteinuria (R80.9) due to diabetic nephropathy Anemia (D64.9), Hyperphosphatemia (E83.39), Secondary Hyperparathyroidism (E21.1), HTN (I12.9). migraine Hypertriglyceridemia, metabolic acidosis Plan Renal function improved today Renal function at baseline BP remains high on bisoprolol as outpt will add b-valdez to her med list while here Monitor Input/Output, daily weights and renal function with basic metabolic panel if eating and drinking ok can d/c ivf continue with statins, iron and MVI continue sodium bicarb f/u EGD will d/c iv iron - tsat 43%. will give aranesp once bp better improved transfusions per primary team S: seen and examined, still w/ episodes of abdominal pain Physical Examination: General Appearance: comfortable, in no acute respiratory distress, co-operative . Vitals reviewed and noted as below Head; Atraumatic, normocephalic ENT: no ulcers no thrush. Tongue is midline. Oropharynx: no rash or ulcers. EYES: Pupils are equal, round and reactive to light accommodation. Eye muscles and extraocular movement intact. Sclera is anicteric. Neck; supple no lymphadenopathy, no thyromegaly or bruit Lungs: Normal respiratory rate/effort. Breath sounds bilateral equal and clear Heart: Normal rate. s1s2 normal. No rub or gallop. Extremities: no edema. No varicose veins Neurological: Patient is alert, awake and oriented to person, place and time. No focal deficit. Strength bilateral appropriate and equal Skin: Warm and dry. Normal turgor. No rash. Palpitation: Normal elasticity for age Abdomen: Abdomen is soft. Bowel sounds +. There is mild epigastic abdominal tenderness, no guarding/rigidity no organomegaly Psych: normal insight and upset MSK: no joint tenderness or swelling. Digits and nails normal, no deformity : kidney or bladder not palpable Labs/imaging reviewed. Past medical history, past surgical history, family history, social history, allergy reviewed and noted as below Family hx: no hx of CKD. Rest non-contributory Objective - Vital Signs/Intake and Output Vital Signs (last 24 hours): Temp Pulse Resp BP Pulse Ox 98.1 F 82 20 170/87 H 97 05/10/18 06:00 05/10/18 06:59 05/10/18 06:00 05/10/18 06:59 05/10/18 06:00 - Medications Medications: Current Medications Acetaminophen/Butalbital/Caffeine (Fioricet) 1 tab PO Q6H PRN PRN Reason: Headache Last Admin: 05/09/18 14:01 Dose: 1 tab Atorvastatin Calcium (Lipitor) 80 mg PO DIN [facility] Last Admin: 05/09/18 17:24 Dose: 80 mg Clonidine HCl (Catapres) 0.1 mg PO BID PRN PRN Reason: Systolic Blood Pressure > 170 Last Admin: 05/10/18 06:59 Dose: 0.1 mg Cyclobenzaprine HCl (Flexeril) 10 mg PO DAILY [facility] Last Admin: 05/09/18 09:34 Dose: 10 mg Dextrose (Dextrose 50% Inj) 0 ml IV STAT PRN; Protocol PRN Reason: Hypoglycemia Protocol Docusate Sodium (Colace) 100 mg PO BID [facility] Last Admin: 05/09/18 17:24 Dose: 100 mg Famotidine (Pepcid) 20 mg PO HS [facility] Last Admin: 05/09/18 21:37 Dose: 20 mg Gemfibrozil (Lopid) 600 mg PO BID [facility] Last Admin: 05/09/18 17:24 Dose: 600 mg Heparin Sodium (Porcine) (Heparin) 5,000 units SC Q8 [facility]; Protocol Last Admin: 05/10/18 06:36 Dose: Not Given Hydralazine HCl (Apresoline) 50 mg PO TID [facility] Last Admin: 05/09/18 17:22 Dose: 50 mg Hydralazine HCl (Apresoline) 25 mg PO Q4 PRN PRN Reason: Other Sodium Chloride (Sodium Chloride 0.9%) 1,000 mls @ 100 mls/hr IV .Q10H [facility] Last Admin: 05/10/18 01:16 Dose: Not Given Iron Sucrose 200 mg/ Sodium (Chloride) 110 mls @ 110 mls/hr IVPB DAILY [facility] Stop: 05/13/18 11:16 Last Admin: 05/09/18 09:37 Dose: 110 mls/hr Dextrose (Dextrose 5% In Water 1000 Ml) 1,000 mls @ 0 mls/hr IV .Q0M PRN; Protocol PRN Reason: Hypoglycemia Protocol Insulin Detemir (Levemir) 5 unit SC Q12 [facility] Last Admin: 05/09/18 21:06 Dose: Not Given Insulin Human Regular (Humulin R Low) 0 units SC ACHS [facility]; Protocol Last Admin: 05/10/18 08:13 Dose: Not Given Losartan Potassium (Cozaar) 100 mg PO DAILY [facility] Last Admin: 05/09/18 09:33 Dose: 100 mg Nifedipine (Procardia Xl) 60 mg PO DAILY [facility] Last Admin: 05/09/18 09:35 Dose: 60 mg Home Med - Bisoprolol Fumarate 10mg 10 mg PO BID [facility] Last Admin: 05/09/18 17:23 Dose: 10 mg Ondansetron HCl (Zofran Inj) 4 mg IVP Q4H PRN PRN Reason: Nausea/Vomiting Last Admin: 05/09/18 21:37 Dose: 4 mg Oxycodone/Acetaminophen (Percocet 5/325 Mg Tab) 1 tab PO Q8H PRN PRN Reason: Pain, moderate (4-7) Stop: 05/13/18 07:44 Last Admin: 05/10/18 07:56 Dose: 1 tab Polyethylene Glycol (Miralax) 17 gm PO BID [facility] Last Admin: 05/09/18 17:25 Dose: 17 gm Sodium Bicarbonate (Sodium Bicarbonate Tab) 1,300 mg PO BID [facility] Last Admin: 05/09/18 09:36 Dose: 1,300 mg Topiramate (Topamax) 50 mg PO DAILY [facility]; Protocol Last Admin: 05/09/18 09:36 Dose: 50 mg Vitamin B Complex/Vit C/Folic Acid (Nephro-Josias) 1 tab PO 0800 [facility] Last Admin: 05/09/18 08:08 Dose: 1 tab - Labs Labs: 05/10/18 06:40 05/10/18 06:40 PT 10.9 SECONDS (9.4-12.5) 05/10/18 06:40 INR 0.95 05/10/18 06:40 APTT 36.7 Seconds (25.1-36.5) H 05/10/18 06:40
[2018-05-10] MEDS: BISOPROLOL FUMARATE 10 MG PO SCH ×2 (10:00→17:24)
[2018-05-10] MEDS: Insulin Detemir 100 units/ml Vial (Levemir) SC SCH (10:01)
[2018-05-10] MEDS: NIFEdipine 60 mg ER Tab PO SCH (10:02)
[2018-05-10] MEDS: POLYETHYLENE GLYCOL 3350 17 GM/Dose PACKET PO SCH ×2 (10:02→17:26)
--- NOTE | 2018-05-10 10:43 | CP.PCM.PN ---
Subjective - Date & Time of Evaluation Date of Evaluation: 05/10/18 Time of Evaluation: 10:37 - Subjective Subjective: PGY-2 GI progress note for Dr Damon No acute events noted overnight. Completed her golytyly yesterday with multiple bowel movements. Maintained her npo for EGD later today. Stated her epigastric discomfort had only improved mildly. Denied emesis or fevers. Objective - Vital Signs/Intake and Output Vital Signs (last 24 hours): Temp Pulse Resp BP Pulse Ox 98.1 F 82 20 141/68 97 05/10/18 06:00 05/10/18 06:59 05/10/18 06:00 05/10/18 10:04 05/10/18 06:00 - Medications Medications: Current Medications Acetaminophen/Butalbital/Caffeine (Fioricet) 1 tab PO Q6H PRN PRN Reason: Headache Last Admin: 05/09/18 14:01 Dose: 1 tab Atorvastatin Calcium (Lipitor) 80 mg PO DIN [facility] Last Admin: 05/09/18 17:24 Dose: 80 mg Clonidine HCl (Catapres) 0.1 mg PO BID PRN PRN Reason: Systolic Blood Pressure > 170 Last Admin: 05/10/18 06:59 Dose: 0.1 mg Cyclobenzaprine HCl (Flexeril) 10 mg PO DAILY [facility] Last Admin: 05/10/18 10:01 Dose: 10 mg Dextrose (Dextrose 50% Inj) 0 ml IV STAT PRN; Protocol PRN Reason: Hypoglycemia Protocol Docusate Sodium (Colace) 100 mg PO BID [facility] Last Admin: 05/10/18 10:00 Dose: 100 mg Famotidine (Pepcid) 20 mg PO HS [facility] Last Admin: 05/09/18 21:37 Dose: 20 mg Gemfibrozil (Lopid) 600 mg PO BID [facility] Last Admin: 05/10/18 10:01 Dose: 600 mg Heparin Sodium (Porcine) (Heparin) 5,000 units SC Q8 [facility]; Protocol Last Admin: 05/10/18 06:36 Dose: Not Given Hydralazine HCl (Apresoline) 50 mg PO TID [facility] Last Admin: 05/10/18 09:57 Dose: 50 mg Hydralazine HCl (Apresoline) 25 mg PO Q4 PRN PRN Reason: Other Sodium Chloride (Sodium Chloride 0.9%) 1,000 mls @ 100 mls/hr IV .Q10H [facility] Last Admin: 05/10/18 01:16 Dose: Not Given Dextrose (Dextrose 5% In Water 1000 Ml) 1,000 mls @ 0 mls/hr IV .Q0M PRN; Protocol PRN Reason: Hypoglycemia Protocol Insulin Detemir (Levemir) 5 unit SC Q12 [facility] Last Admin: 05/10/18 10:01 Dose: 5 units Insulin Human Regular (Humulin R Low) 0 units SC ACHS [facility]; Protocol Last Admin: 05/10/18 08:13 Dose: Not Given Losartan Potassium (Cozaar) 100 mg PO DAILY [facility] Last Admin: 05/10/18 10:00 Dose: 100 mg Metoprolol Tartrate (Lopressor) 50 mg PO BID [facility] Last Admin: 05/10/18 10:04 Dose: 50 mg Nifedipine (Procardia Xl) 60 mg PO DAILY [facility] Last Admin: 05/10/18 10:02 Dose: 60 mg Home Med - Bisoprolol Fumarate 10mg 10 mg PO BID [facility] Last Admin: 05/10/18 10:00 Dose: Not Given Ondansetron HCl (Zofran Inj) 4 mg IVP Q4H PRN PRN Reason: Nausea/Vomiting Last Admin: 05/09/18 21:37 Dose: 4 mg Oxycodone/Acetaminophen (Percocet 5/325 Mg Tab) 1 tab PO Q8H PRN PRN Reason: Pain, moderate (4-7) Stop: 05/13/18 07:44 Last Admin: 05/10/18 07:56 Dose: 1 tab Polyethylene Glycol (Miralax) 17 gm PO BID [facility] Last Admin: 05/10/18 10:02 Dose: 17 gm Sodium Bicarbonate (Sodium Bicarbonate Tab) 1,300 mg PO BID [facility] Last Admin: 05/10/18 10:03 Dose: 1,300 mg Topiramate (Topamax) 50 mg PO DAILY [facility]; Protocol Last Admin: 05/10/18 10:03 Dose: 50 mg Vitamin B Complex/Vit C/Folic Acid (Nephro-Josias) 1 tab PO 0800 [facility] Last Admin: 05/10/18 09:02 Dose: 1 tab - Labs Labs: 05/10/18 06:40 05/10/18 06:40 PT 10.9 SECONDS (9.4-12.5) 05/10/18 06:40 INR 0.95 05/10/18 06:40 APTT 36.7 Seconds (25.1-36.5) H 05/10/18 06:40 - Additional Findings Additional findings: - Constitutional Appears: Well, Non-toxic, No Acute Distress - Head Exam Head Exam: ATRAUMATIC, NORMAL INSPECTION, NORMOCEPHALIC - Eye Exam Eye Exam: EOMI, Normal appearance, PERRL Pupil Exam: PERRL - ENT Exam ENT Exam: Mucous Membranes Moist, Normal Exam - Neck Exam Neck exam: Positive for: Normal Inspection - Respiratory Exam Respiratory Exam: Clear to Auscultation Bilateral, NORMAL BREATHING PATTERN. absent: Rales, Rhonchi, Wheezes, Respiratory Distress - Cardiovascular Exam Cardiovascular Exam: RRR, +S1, +S2. absent: Systolic Murmur - GI/Abdominal Exam GI & Abdominal Exam: Normal Bowel Sounds, Soft. absent: Tenderness - Extremities Exam Extremities exam: Positive for: normal inspection, pedal pulses present. Negative for: tenderness - Back Exam Back exam: absent: CVA tenderness (L), CVA tenderness (R), vertebral tenderness - Neurological Exam Neurological exam: Alert, CN II-XII Intact, Oriented x3 - Psychiatric Exam Psychiatric exam: Normal Affect, Normal Mood - Skin Skin Exam: Dry, Mottled, Warm Assessment and Plan - Assessment and Plan (Free Text) Plan: Mrs Keith is a 63 year old female with a PMHx of CKD pending transplant, HTN, DM, GERD, Chronic Back pain, HLD, Constipation, Mirgraines who presented to [facility] for LUQ adbominal pain which radiates into the L flank that been worsening for the past 3 weeks. GI has been consulted for constipation: Constipation -last bowel movement 10 days ago which was soft -likely gastroparesis 2/2 chronic opioid use -has been receiving docusate 100mg po bid and miralax 17g po bid -patient was prescribed naloxegol 2 months ago (indicated for opioid-induced constipation) - she said this medication helps however she hasn't taken it in the past week (she said she only takes if 2 weeks go by without a bowel movement) - this medication is supposed to be taken once a day -started her on clear liquid diet 05/08 -administer 1/2 gallon of golytly 05/08 - administer another 1/2 gallon golytly 05/09 -change insulin coverage to low coverage and order for hypoglycemia protocol 05/08 -ct abd/pelvis w/o contrast showed stool throughout colon and rectum (as read by me - official read was unremarkable except previous anterior wall surgery) -plan for EGD 05/10 * continue bowel prep, npo after midnight, coags for tomorrow morning * consent obtained Previous GI Procedures: -she had a colonoscopy with Dr Damon in 07/2016 which showed a 8mm polyp (removed - path showed tubular adenoma), internal hemorrhoids and redundent colon. She also had an EGD with Dr Damon in 05/2016 which showed gastritis (path was negative). Case discussed with Dr Damon.
[2018-05-10] MEDS ORDERED: Propofol 10 mg/ml Inj (20 ML) ONE (15:15)
[2018-05-10] MEDS ORDERED: Lidocaine 1% Inj (20ml) ONE (15:15)
[2018-05-10 16:00] VITALS: RESP 12; TEMP 98.4
[2018-05-10] MEDS ORDERED: Sodium Chloride 0.9% 1,000 ML IV SCH (16:00)
[2018-05-10 16:19] VITALS: O2SAT 99
[2018-05-10 16:49] VITALS: BP 142/66; PULSE 75
--- NOTE | 2018-05-10 18:13 | CP.PCM.DIS ---
<Gabe Mendoza - Last Filed: 05/10/18 18:15> Provider - Provider Date of Admission: 05/09/18 12:34 Attending physician: Nayeli Stone MD Primary care physician: Jose Juan Coles MD Time Spent in preparation of Discharge (in minutes): 45 Diagnosis - Discharge Diagnosis (1) Intractable abdominal pain Status: Acute Priority: High (2) Anemia Status: Chronic Priority: High (3) Benign essential hypertension Status: Active Priority: High (4) Diabetes Status: Chronic Priority: Medium (5) CKD (chronic kidney disease) Status: Chronic Priority: High Hospital Course - Lab Results Lab Results: Most Recent Lab Values WBC 6.5 10^3/uL (4.5-11.0) D 05/10/18 06:40 RBC 2.85 10^6/uL (3.5-6.1) L 05/10/18 06:40 Hgb 8.3 g/dL (12.0-16.0) L 05/10/18 06:40 Hct 25.3 % (36.0-48.0) L 05/10/18 06:40 MCV 88.8 fl (80.0-105.0) 05/10/18 06:40 MCH 29.1 pg (25.0-35.0) 05/10/18 06:40 MCHC 32.8 g/dl (31.0-37.0) 05/10/18 06:40 RDW 13.9 % (11.5-14.5) 05/10/18 06:40 Plt Count 208 10^3/uL (120.0-450.0) 05/10/18 06:40 MPV 9.9 fl (7.0-11.0) 05/10/18 06:40 Gran % 62.4 % (50.0-68.0) 05/10/18 06:40 Lymph % (Auto) 28.1 % (22.0-35.0) 05/10/18 06:40 Bond % (Auto) 5.2 % (1.0-6.0) 05/10/18 06:40 Eos % (Auto) 3.8 % (1.5-5.0) 05/10/18 06:40 Baso % (Auto) 0.5 % (0.0-3.0) 05/10/18 06:40 Gran # 4.08 (1.4-6.5) 05/10/18 06:40 Lymph # (Auto) 1.8 (1.2-3.4) 05/10/18 06:40 Bond # (Auto) 0.3 (0.1-0.6) 05/10/18 06:40 Eos # (Auto) 0.3 (0.0-0.7) 05/10/18 06:40 Baso # (Auto) 0.03 K/mm3 (0.0-2.0) 05/10/18 06:40 PT 10.9 SECONDS (9.4-12.5) 05/10/18 06:40 INR 0.95 05/10/18 06:40 APTT 36.7 Seconds (25.1-36.5) H 05/10/18 06:40 Sodium 138 mmol/L (132-148) 05/10/18 06:40 Potassium 4.5 mmol/L (3.6-5.0) 05/10/18 06:40 Chloride 110 mmol/L (98-107) H 05/10/18 06:40 Carbon Dioxide 20 mmol/L (21-33) L 05/10/18 06:40 Anion Gap 12 (10-20) 05/10/18 06:40 BUN 28 mg/dL (7-21) H 05/10/18 06:40 Creatinine 2.7 mg/dl (0.7-1.2) H 05/10/18 06:40 Est GFR ( Amer) 21 05/10/18 06:40 Est GFR (Non-Af Amer) 18 05/10/18 06:40 POC Glucose (mg/dL) 83 mg/dL (65-110) 05/10/18 17:07 Random Glucose 165 mg/dL (70-110) H 05/10/18 06:40 Hemoglobin A1c 8.3 % (4.2-6.5) H 05/07/18 01:15 Calcium 8.4 mg/dL (8.4-10.5) 05/10/18 06:40 Phosphorus 4.7 mg/dL (2.5-4.5) H 05/07/18 01:15 Magnesium 1.9 mg/dL (1.7-2.2) 05/07/18 01:15 Iron 84 ug/dL (45-180) 05/07/18 01:15 TIBC 193 ug/dL (265-497) L 05/07/18 01:15 % Saturation 44 % (20-55) 05/07/18 01:15 Transferrin 174.62 mg/dL (206-381) L 05/07/18 01:15 Ferritin 53.2 ng/mL 05/07/18 08:50 Total Bilirubin 0.2 mg/dL (0.2-1.3) 05/10/18 06:40 AST 21 U/L (14-36) 05/10/18 06:40 ALT 18 U/L (7-56) 05/10/18 06:40 Alkaline Phosphatase 148 U/L (38-126) H 05/10/18 06:40 Total Protein 6.1 g/dL (5.8-8.3) 05/10/18 06:40 Albumin 2.8 g/dL (3.0-4.8) L 05/10/18 06:40 Globulin 3.2 gm/dL 05/10/18 06:40 Albumin/Globulin Ratio 0.9 (1.1-1.8) L 05/10/18 06:40 Triglycerides 910 mg/dL (35-160) H 05/07/18 08:50 Cholesterol 499 mg/dL (130-200) H 05/07/18 08:50 LDL Cholesterol Direct 129 mg/dL (0-129) 05/07/18 08:50 HDL Cholesterol 48 mg/dL (29-60) 05/07/18 08:50 Amylase 78 U/L (35-125) 05/07/18 01:15 Lipase 63 U/L (23-300) 05/07/18 01:10 Urine Color Yellow (YELLOW) 05/07/18 01:20 Urine Appearance Clear (CLEAR) 05/07/18 01:20 Urine pH 7.0 (4.7-8.0) 05/07/18 01:20 Ur Specific [place] 1.020 (1.005-1.035) 05/07/18 01:20 Urine Protein >=300 mg/dL (<30 mg/dL) H 05/07/18 01:20 Urine Glucose (UA) 500 mg/dL (NEGATIVE) H 05/07/18 01:20 Urine Ketones Negative mg/dL (NEGATIVE) 05/07/18 01:20 Urine Blood Trace-intact (NEGATIVE) H 05/07/18 01:20 Urine Nitrate Negative (NEGATIVE) 05/07/18 01:20 Urine Bilirubin Negative (NEGATIVE) 05/07/18 01:20 Urine Urobilinogen 0.2 E.U./dL (<1 E.U./dL) 05/07/18 01:20 Ur Leukocyte Esterase Negative [place]/uL (NEGATIVE) 05/07/18 01:20 Urine RBC 0 - 2 /hpf (0-2) 05/07/18 01:20 Urine WBC 0 - 2 /hpf (0-6) 05/07/18 01:20 Ur Epithelial Cells 3 - 4 /hpf (0-5) 05/07/18 01:20 Urine Bacteria Trace (NEG) 05/07/18 01:20 - Hospital Course Hospital Course: Pt is a 63 year old Female with PMH of CKD pending transplant, HTN, DM, GERD, Chronic Back pain, HLD, Constipation, CKD who presented to [facility] on 05/07/18 with complaint of LUQ pain which radiated into the left flank. Patient reported the pain had been ongoing and worsening for 3 weeks. She described the pain as dull and constant with no association with meals. She also reported constipation for 3 days with associated sweats and bilious vomiting. Pt reported finally coming into the hospital because she felt worse and had ran out of her Percocet. She denied any hemochezia, melena, hematuria. On admission, GI was consulted. CT abdomen/pelvis showed gastroparesis and distended stomach with Bezoar and large amount of stool throughout GI tract per GI (Dr. Damon). Pt was started on flexeril for pain and miralax and Colace for her constipation. Her Percocet frequency was decreased and she was counselled on the risks of narcotic abuse. Pt was given golytely with improvement of her symptoms. She underwent upper endoscopy which showed gastroparesis and recommended to start a pureed diet per GI. Nephrology was also consulted for CKD, anemia, and hypertension. Nephrotoxic agents were held. Her blood pressure was high while on her home Bisoprolol. Metoprolol was added. Her Creatinine improved from 3.5 to 2.7 during her admission. Patient will need venous mapping perhaps as outpatient per nephrology. She was given iron supplements for anemia and remained asymptomatic clinically. Pts Triglycerides and Cholesterol were elevated at 910, 499 respectively and she was started on Lipitor and Gemfibrozil. Pts symptoms continued to improve and she will be discharged on Lopressor 50mg BID, Lipitor 10mg, Gemfibrozil 600 mg PO BID, Flexeril 10mg PO daily, Miralax and Colace with instructions to followup with her PMD in one week. - Date & Time of H&P Date of H&P: 05/10/18 Time of H&P: 18:14 Discharge Exam - Head Exam Head Exam: ATRAUMATIC, NORMAL INSPECTION, NORMOCEPHALIC - Eye Exam Eye Exam: EOMI Pupil Exam: NORMAL ACCOMODATION - ENT Exam ENT Exam: Mucous Membranes Moist - Neck Exam Neck exam: Full Rom - Respiratory Exam Respiratory Exam: NORMAL BREATHING PATTERN, UNREMARKABLE. absent: Wheezes, Respiratory Distress - Cardiovascular Exam Cardiovascular Exam: +S1, +S2. absent: Diastolic murmur, Systolic Murmur - GI/Abdominal Exam GI & Abdominal Exam: Normal Bowel Sounds, Tenderness, Unremarkable Additional comments: mild tenderness to palpation in the LUQ - Extremities Exam Extremities exam: full ROM, pedal pulses present - Neurological Exam Neurological exam: Alert, Oriented x3 - Psychiatric Exam Psychiatric exam: Normal Affect, Normal Mood - Skin Skin Exam: Dry, Intact, Warm Discharge Plan - Discharge Medications Prescriptions: Atorvastatin [Lipitor] 10 mg PO DIN #30 tab Gemfibrozil [Lopid] 600 mg PO BID #60 tab Metoprolol Tartrate [Lopressor] 50 mg PO BID #60 tab - Follow Up Plan Condition: STABLE Disposition: HOME/ ROUTINE Instructions: Gastritis (DC), Gastroparesis (Delayed Gastric Emptying) (DC), Abdominal Pain (ED), Anemia (DC), Anemia (GEN) Additional Instructions: 1. please follow up with your primary care physician within 1 week 2. please continue to take your medications as directed 3. If your symptoms return or worsen, please go to the nearest emergency department Referrals: Jose Juan Coles MD [Primary Care Provider] - <Nayeli Stone - Last Filed: 05/11/18 13:56> Provider - Provider Date of Admission: 05/09/18 12:34 Attending physician: Nayeli Stone MD Primary care physician: Jose Juan Coles MD Hospital Course - Lab Results Lab Results: Most Recent Lab Values WBC 6.5 10^3/uL (4.5-11.0) D 05/10/18 06:40 RBC 2.85 10^6/uL (3.5-6.1) L 05/10/18 06:40 Hgb 8.3 g/dL (12.0-16.0) L 05/10/18 06:40 Hct 25.3 % (36.0-48.0) L 05/10/18 06:40 MCV 88.8 fl (80.0-105.0) 05/10/18 06:40 MCH 29.1 pg (25.0-35.0) 05/10/18 06:40 MCHC 32.8 g/dl (31.0-37.0) 05/10/18 06:40 RDW 13.9 % (11.5-14.5) 05/10/18 06:40 Plt Count 208 10^3/uL (120.0-450.0) 05/10/18 06:40 MPV 9.9 fl (7.0-11.0) 05/10/18 06:40 Gran % 62.4 % (50.0-68.0) 05/10/18 06:40 Lymph % (Auto) 28.1 % (22.0-35.0) 05/10/18 06:40 Bond % (Auto) 5.2 % (1.0-6.0) 05/10/18 06:40 Eos % (Auto) 3.8 % (1.5-5.0) 05/10/18 06:40 Baso % (Auto) 0.5 % (0.0-3.0) 05/10/18 06:40 Gran # 4.08 (1.4-6.5) 05/10/18 06:40 Lymph # (Auto) 1.8 (1.2-3.4) 05/10/18 06:40 Bond # (Auto) 0.3 (0.1-0.6) 05/10/18 06:40 Eos # (Auto) 0.3 (0.0-0.7) 05/10/18 06:40 Baso # (Auto) 0.03 K/mm3 (0.0-2.0) 05/10/18 06:40 PT 10.9 SECONDS (9.4-12.5) 05/10/18 06:40 INR 0.95 05/10/18 06:40 APTT 36.7 Seconds (25.1-36.5) H 05/10/18 06:40 Sodium 138 mmol/L (132-148) 05/10/18 06:40 Potassium 4.5 mmol/L (3.6-5.0) 05/10/18 06:40 Chloride 110 mmol/L (98-107) H 05/10/18 06:40 Carbon Dioxide 20 mmol/L (21-33) L 05/10/18 06:40 Anion Gap 12 (10-20) 05/10/18 06:40 BUN 28 mg/dL (7-21) H 05/10/18 06:40 Creatinine 2.7 mg/dl (0.7-1.2) H 05/10/18 06:40 Est GFR ( Amer) 21 05/10/18 06:40 Est GFR (Non-Af Amer) 18 05/10/18 06:40 POC Glucose (mg/dL) 83 mg/dL (65-110) 05/10/18 17:07 Random Glucose 165 mg/dL (70-110) H 05/10/18 06:40 Hemoglobin A1c 8.3 % (4.2-6.5) H 05/07/18 01:15 Calcium 8.4 mg/dL (8.4-10.5) 05/10/18 06:40 Phosphorus 4.7 mg/dL (2.5-4.5) H 05/07/18 01:15 Magnesium 1.9 mg/dL (1.7-2.2) 05/07/18 01:15 Iron 84 ug/dL (45-180) 05/07/18 01:15 TIBC 193 ug/dL (265-497) L 05/07/18 01:15 % Saturation 44 % (20-55) 05/07/18 01:15 Transferrin 174.62 mg/dL (206-381) L 05/07/18 01:15 Ferritin 53.2 ng/mL 05/07/18 08:50 Total Bilirubin 0.2 mg/dL (0.2-1.3) 05/10/18 06:40 AST 21 U/L (14-36) 05/10/18 06:40 ALT 18 U/L (7-56) 05/10/18 06:40 Alkaline Phosphatase 148 U/L (38-126) H 05/10/18 06:40 Total Protein 6.1 g/dL (5.8-8.3) 05/10/18 06:40 Albumin 2.8 g/dL (3.0-4.8) L 05/10/18 06:40 Globulin 3.2 gm/dL 05/10/18 06:40 Albumin/Globulin Ratio 0.9 (1.1-1.8) L 05/10/18 06:40 Triglycerides 910 mg/dL (35-160) H 05/07/18 08:50 Cholesterol 499 mg/dL (130-200) H 05/07/18 08:50 LDL Cholesterol Direct 129 mg/dL (0-129) 05/07/18 08:50 HDL Cholesterol 48 mg/dL (29-60) 05/07/18 08:50 Amylase 78 U/L (35-125) 05/07/18 01:15 Lipase 63 U/L (23-300) 05/07/18 01:10 Urine Color Yellow (YELLOW) 05/07/18 01:20 Urine Appearance Clear (CLEAR) 05/07/18 01:20 Urine pH 7.0 (4.7-8.0) 05/07/18 01:20 Ur Specific [place] 1.020 (1.005-1.035) 05/07/18 01:20 Urine Protein >=300 mg/dL (<30 mg/dL) H 05/07/18 01:20 Urine Glucose (UA) 500 mg/dL (NEGATIVE) H 05/07/18 01:20 Urine Ketones Negative mg/dL (NEGATIVE) 05/07/18 01:20 Urine Blood Trace-intact (NEGATIVE) H 05/07/18 01:20 Urine Nitrate Negative (NEGATIVE) 05/07/18 01:20 Urine Bilirubin Negative (NEGATIVE) 05/07/18 01:20 Urine Urobilinogen 0.2 E.U./dL (<1 E.U./dL) 05/07/18 01:20 Ur Leukocyte Esterase Negative [place]/uL (NEGATIVE) 05/07/18 01:20 Urine RBC 0 - 2 /hpf (0-2) 05/07/18 01:20 Urine WBC 0 - 2 /hpf (0-6) 05/07/18 01:20 Ur Epithelial Cells 3 - 4 /hpf (0-5) 05/07/18 01:20 Urine Bacteria Trace (NEG) 05/07/18 01:20 Attending/Attestation - Attestation I have personally seen and examined this patient.: Yes I have fully participated in the care of the patient.: Yes I have reviewed all pertinent clinical information, including history, physical exam and plan: Yes Notes (Text): 05/10/18 63 year old female with past medical history of CKD, hypertension, diabetes and chronic back pain who presented with complaint of abdominal pain and constipat ion. CT abd/pelvis showed constipation. Patient was on miralax and colace and also received golytely with improvement of symptoms. She was seen by GI and underwent EGD today as above. She was counselled on risks of narcotic abuse. Nephrology was following for CKD, anemia and hypertension. She was started on lipitor and gemfibrozil for dyslipidemia and hypertriglyceridemia. Patient is discharged home to follow up with pmd. Follow up with GI and nephrology. Counselled on risks of narcotic abuse. Nayeli Stone MD Hospitalist.
== END 2018-05-10 18:47 | disposition home or self-care (01) ==
LOC: ED 23:26 → ERH 05-07 03:55 → 3RSO 05-07 10:03 → INTOOBSV 05-09 12:34 → OBSVTOIN 05-09 12:34
PROVIDERS: ADMIT Internal Medicine; ATTEND Internal Medicine
DX: R10.9 Unspecified abdominal pain (principal); E87.2 Acidosis; N17.9 Acute kidney failure, unspecified; Z76.82 Awaiting organ transplant status; K31.84 Gastroparesis; E11.21 Type 2 diabetes mellitus with diabetic nephropathy; E11.43 Type 2 diabetes mellitus with diabetic autonomic (poly)neuropathy; N18.4 Chronic kidney disease, stage 4 (severe); N25.81 Secondary hyperparathyroidism of renal origin; E11.22 Type 2 diabetes mellitus with diabetic chronic kidney disease; E11.319 Type 2 diabetes mellitus with unspecified diabetic retinopathy without macular edema; D64.9 Anemia, unspecified; E78.1 Pure hyperglyceridemia; E78.5 Hyperlipidemia, unspecified; E83.39 Other disorders of phosphorus metabolism; G43.909 Migraine, unspecified, not intractable, without status migrainosus; I12.9 Hypertensive chronic kidney disease with stage 1 through stage 4 chronic kidney disease, or unspecified chronic kidney disease; I16.0 Hypertensive urgency; K59.03 Drug induced constipation; K64.8 Other hemorrhoids; T18.2XXA Foreign body in stomach, initial encounter; T40.605A Adverse effect of unspecified narcotics, initial encounter; Z53.20 Procedure and treatment not carried out because of patient's decision for unspecified reasons; K29.50 Unspecified chronic gastritis without bleeding; Z79.899 Other long term (current) drug therapy; Z87.440 Personal history of urinary (tract) infections; Z87.891 Personal history of nicotine dependence; Z90.49 Acquired absence of other specified parts of digestive tract; Z90.710 Acquired absence of both cervix and uterus; Z96.642 Presence of left artificial hip joint; Z96.653 Presence of artificial knee joint, bilateral; Z91.040 Latex allergy status; Z88.6 Allergy status to analgesic agent; M19.90 Unspecified osteoarthritis, unspecified site; K21.9 Gastro-esophageal reflux disease without esophagitis; M54.9 Dorsalgia, unspecified
CPT/HCPCS: 36415; 43239; 74176; 80053; 80061; 81001; 82150; 82728; 82948; 83036; 83690; 83735; 84100; 84466; 85025; 85027; 85610; 85730; 88305; 88342; 93005; 96361; 96372; 96374; 96375; 96376; 99283; G0378; J1644; J1756; J2270; J2405; J2704; J7030; J7040

== ENCOUNTER 2018-06-03 11:38 | Emergency (ER) | payer OTHER ==
[2018-06-03 11:38] VITALS: BMI 27.8
--- NOTE | 2018-06-03 11:45 | ED PDOC ---
Arrival/HPI - General Time Seen by Provider: 06/03/18 11:42 Historian: Patient - History of Present Illness Narrative History of Present Illness (Text): 06/03/18 11:44 Patient is a 63 y/o F with hx of CKD pending transplant, HTN, DM, GERD, Chronic Back pain, HLD, Constipation, evaluated in [facility] on 05/13/[address] showing gastroparesis, bezoar and constipation, with upper endoscopy showing gastroparesis, presents to the Emergency department complaining of constipation and sciatic nerve pain since May 22. Patient states she was unable to follow-up with her GI Dr. Damon secondary to insurance conflicts. Denies any new abdominal pain. Denies any recent changes to diet or medications. Patient denies any fever, chills, nausea, vomiting, chest pain, shortness of breath, urinary symptoms or any other complaints. 06/03/18 17:46 Time/Duration: > week Symptom Onset: Gradual Symptom Course: Unchanged Quality: Aching Activities at Onset: Light Context: Home Past Medical History - Provider Review Nursing Documentation Reviewed: Yes - Infectious Disease Hx of Infectious Diseases: None - Cardiac Hx Cardiac Disorders: Yes Hx Hypertension: Yes - Pulmonary Hx Respiratory Disorders: No - Neurological Hx Neurological Disorder: No - HEENT Hx HEENT Disorder: No - Renal Hx Renal Disorder: Yes - Endocrine/Metabolic Hx Diabetes Mellitus Type 2: Yes - Hematological/Oncological Hx Blood Transfusions: No Hx Blood Transfusion Reaction: No - Integumentary Hx Dermatological Disorder: No - Musculoskeletal/Rheumatological Hx Back Pain: Yes Hx Degenerative Joint Disease: Yes Hx Falls: Yes - Gastrointestinal Hx Gastrointestinal Disorders: Yes Other/Comment: Chronic constipation - Genitourinary/Gynecological Hx Urinary Tract Infection: Yes - Psychiatric Hx Emotional Abuse: No Hx Physical Abuse: No Hx Substance Use: No - Surgical History Hx Appendectomy: Yes Hx Hysterectomy: Yes Hx Joint Replacement: Yes Hx Musculoskeletal Surgery: Yes Other/Comment: Bilateral knee replacement, left hip replacement, multiple back surgeries - Anesthesia Hx Anesthesia Reactions: No Hx Malignant Hyperthermia: No - Suicidal Assessment Feels Threatened In Home Enviroment: No Family/Social History - Physician Review Nursing Documentation Reviewed: Yes Family/Social History: Unknown Family HX Smoking Status: Former Smoker Hx Alcohol Use: No Hx Substance Use: No Hx Substance Use Treatment: No Allergies/Home Meds Allergies/Adverse Reactions: Allergies latex Allergy (Intermediate, Verified 06/03/18 11:55) HIVES aspirin Adverse Reaction (Intermediate, Verified 06/03/18 11:55) ACID REFLUX/STOMACH PAIN Home Medications: Home Meds Medication Instructions Recorded Confirmed RX: Insulin Glargine,Hum.rec.anlog 10 unit SC HS 01/12/12 05/07/18 [Lantus] RX: Insulin Human NPH/Reg [HumuLIN 8 units SC ACBD 01/12/12 05/07/18 70/30 (NPH/Reg)] RX: Oxycodone HCl [Oxycontin] 10 mg PO BID 05/24/16 05/07/18 RX: oxyCODONE/Acetaminophen 1 tab PO QID PRN 07/14/16 05/07/18 [Percocet 5/325 mg Tab] RX: Acetaminophen/Butalbital/Caf 1 tab PO Q6H PRN 05/06/18 05/06/18 [Fioricet] RX: Biotin 1,000 mcg PO DAILY 05/06/18 05/07/18 RX: Cyclobenzaprine [Flexeril] 10 mg PO DAILY 05/06/18 05/07/18 RX: Docusate [Colace] 100 mg PO DAILY 05/06/18 05/06/18 RX: Ergocalciferol (Vitamin D2) 1 tab PO MON 05/06/18 05/06/18 [Vitamin D2] RX: Furosemide [Lasix] 20 mg PO DAILY 05/06/18 05/06/18 RX: Lamotrigine [Lamictal] 150 mg PO DAILY 05/06/18 05/06/18 RX: Omeprazole Magnesium [Prilosec 40 mg PO DAILY 05/06/18 05/07/18 Otc] RX: Topiramate [Topamax] 50 mg PO DAILY 05/06/18 05/06/18 RX: hydrALAZINE [Apresoline] 50 mg PO TID 05/06/18 05/06/18 RX: Ferrous Sulfate [Feosol] 325 mg PO DAILY 05/07/18 05/07/18 RX: Ranitidine HCl [Acid [employer]eron[employer] Teacher] 150 mg PO DAILY 05/07/18 05/07/18 Review of Systems - Review of Systems Constitutional: absent: Fevers Respiratory: absent: SOB, Cough Cardiovascular: absent: Chest Pain, MAHAN Gastrointestinal: Constipation. absent: Abdominal Pain, Diarrhea, Nausea, Vomiting Genitourinary Female: absent: Dysuria, Urine Output Changes Musculoskeletal: absent: Neck Pain Skin: absent: Rash Neurological: absent: Headache, Dizziness Endocrine: absent: Polyuria Psychiatric: absent: Anxiety Physical Exam Vital Signs Reviewed: Yes Temperature: Afebrile Blood Pressure: Normal Pulse: Regular Respiratory Rate: Normal Appearance: Positive for: Well-Appearing, Non-Toxic, Comfortable Pain Distress: None Mental Status: Positive for: Alert and Oriented X 3 - Systems Exam Head: Present: Atraumatic, Normocephalic Pupils: Present: PERRL Extroacular Muscles: Present: EOMI Conjunctiva: Present: Normal Neck: Present: Normal Range of Motion Respiratory/Chest: Present: Clear to Auscultation, Good Air Exchange. No: Respiratory Distress, Accessory Muscle Use Cardiovascular: Present: Regular Rate and Rhythm, Normal S1, S2. No: Murmurs Abdomen: No: Tenderness, Distention, Peritoneal Signs Back: Present: Normal Inspection Upper Extremity: Present: Normal Inspection. No: Cyanosis, Edema Lower Extremity: Present: Normal Inspection. No: Edema Neurological: Present: GCS=15, CN II-XII Intact, Speech Normal Skin: Present: Warm, Dry, Normal Color. No: Rashes Psychiatric: Present: Alert, Oriented x 3, Normal Insight, Normal Concentration Medical Decision Making ED Course and Treatment: 06/03/18 12:02 Impression: 63 year old female presents to the Emergency department complaining of constipation and sciatic nerve pain. Plan: -- EKG -- Labs -- Pepcid -- Reglan -- IV fluids -- Toradol -- X-ray of Abdomen -- Reassess and disposition Prior Visits: Notes and results from previous visits were reviewed. Progress Notes: 06/03/18 12:03 Patient was made aware that only non-narcotic medications will be given since narcotics will exacerbate her constipation. Patient understands and agrees with plan. 06/03/18 13:23 X- Ray of abdomen reviewed by radiologist, shows: There is moderate constipation especially on the right side of the colon 06/03/18 13:33 Looked at prior nephrology note and says "Dose meds/antibiotics for reduced GFR. Avoid fleets enema/magnesium based laxatives. Avoid nephrotoxins/NSAIDs/ iodinated contrast (unless needed emergently)." 06/03/18 17:06 Gave kayxelate and patient had large bm in ED. Feels better. Potassium also improved. Patient aware of her renal function and is still on transplant list. Was given additional GI referral. - Scribe Statement The provider has reviewed the documentation as recorded by the Scribe Sam Lemons. All medical record entries made by the Scribe were at my direction and personally dictated by me. I have reviewed the chart and agree that the record accurately reflects my personal performance of the history, physical exam, medical decision making, and the department course for this patient. I have also personally directed, reviewed, and agree with the discharge instructions and disposition. Disposition/Present on Arrival - Present on Arrival Any Indicators Present on Arrival: No History of DVT/PE: No History of Uncontrolled Diabetes: No Urinary Catheter: No History Surgical Site Infection Following: None - Disposition Have Diagnosis and Disposition been Completed?: Yes Diagnosis: Constipation, CKD (chronic kidney disease) Disposition: HOME/ ROUTINE Disposition Time: 17:07 Patient Plan: Discharge Condition: GOOD Discharge Instructions (ExitCare): Constipation in Adults, Chronic Kidney Disease, Kidney Disease Diet (For People Not on Dialysis) Additional Instructions: Follow-up with PMD within 2 days. Return to ED if condition worsens. Follow-up with GI and nephrology Referrals: Andrews Bradley MD [Staff Provider] - Follow up with primary Forms: [employer] (T[place]anian)
[2018-06-03 11:50] VITALS: RESP 18; TEMP 98.3; O2SAT 99
[2018-06-03] MEDS ORDERED: Sodium Chloride 0.9% 500 ML IV STA (12:04)
--- NOTE | 2018-06-03 12:39 | RAD ---
Date of service: 06/03/2018 HISTORY: constipation COMPARISON: None available. FINDINGS: BOWEL: Normal. No obstruction. No free air. There is moderate constipation especially on the right side of the colon BONES: Normal. OTHER FINDINGS: None. IMPRESSION: There is moderate constipation especially on the right side of the colon
[2018-06-03 13:17] LABS: BASO # 0.05 K/mm3 (0.0-2.0); BASO % 0.6 % (0.0-3.0); EOS # 0.1 (0.0-0.7); EOS % 1.5 % (1.5-5.0); GRAN # 6.38 (1.4-6.5); GRAN % 74.9 % (50.0-68.0); HEMOGLOBIN 10.6 g/dL (12.0-16.0); LYMPH # 1.5 (1.2-3.4); MEAN CELL VOLUME 89.4 fl (80.0-105.0); MEAN CORPUSCULAR HEMOGLOBIN 29.4 pg (25.0-35.0); MEAN CORPUSCULAR HGB CONC 32.9 g/dl (31.0-37.0); MEAN PLATELET VOLUME 10.3 fl (7.0-11.0); MONO # 0.5 (0.1-0.6); RBC 3.6 10^6/uL (3.5-6.1); RED CELL DISTRIBUTION WIDTH 14.4 % (11.5-14.5); WHITE BLOOD COUNT 8.5 10^3/uL (4.5-11.0)
[2018-06-03] MEDS ORDERED: Magnesium Hydroxide Susp 30 ml UD PO STA (13:18)
[2018-06-03 13:28] LABS: ALBUMIN 3.6 g/dL (3.0-4.8); CALCIUM 9.2 mg/dL (8.4-10.5)
[2018-06-03] MEDS ORDERED: Sod Polystyrene Sulf 15 gm/60 ml Susp PO STA (13:50)
[2018-06-03] MEDS ORDERED: Sod Polystyrene Sulf 15 gm/60 ml Susp PR STA (13:51)
[2018-06-03 16:56] LABS: CALCIUM 8.8 mg/dL (8.4-10.5)
[2018-06-04 00:29] VITALS: BP 141/75; PULSE 75
--- NOTE | 2018-06-04 09:24 | CARD ---
APPROVED REPORT Date of service: 06/03/2018 EKG Measurement Heart [id number] <Conclusion> Normal sinus rhythm Moderate voltage criteria for LVH, may be normal variant Inferior infarct, old PRWP No change
== END 2018-06-03 17:37 | disposition home or self-care (01) ==
LOC: ED 11:38
DX: I12.9 Hypertensive chronic kidney disease with stage 1 through stage 4 chronic kidney disease, or unspecified chronic kidney disease (principal); E11.22 Type 2 diabetes mellitus with diabetic chronic kidney disease; N18.9 Chronic kidney disease, unspecified; Z87.891 Personal history of nicotine dependence; K59.00 Constipation, unspecified; K21.9 Gastro-esophageal reflux disease without esophagitis
CPT/HCPCS: 74019; 80053; 83690; 83735; 84100; 85025; 93005; 96374; 96375; 99283; J1885; J2765; J7040